=== PATIENT | female | born 1965 | race Caucasian/White ===

== ENCOUNTER 2017-08-11 09:59 | Emergency (ER) | payer BC ==
[2017-08-11] MEDS ORDERED: NS 0.9% 1000 ML* 1,000 ML IV ONE (10:48)
[2017-08-11] MEDS ORDERED: Ketorolac INJ* 30 MG/ML 1 ML VIAL IV ONE (10:48)
[2017-08-11] MEDS ORDERED: Ondansetron INJ* 2 MG/ML VIAL ONE (11:01)
[2017-08-11] MEDS ORDERED: Ondansetron INJ* 2 MG/ML VIAL IV ONE ×2 (11:01→12:33)
[2017-08-11 11:16] LABS: ABS Basophils 0 10^3/ul (0-0.2); ABS Eosinophils 0.1 10^3/ul (0-0.6); ABS Monocytes 0.5 10^3/ul (0-0.8); ABS Neutrophils 4.9 10^3/ul (1.5-7.7); ABS Nucleated RBC 0 10^3/ul; Eosinophil % 1.9 % (0-6); Hematocrit 41 % (35-47); Hemoglobin 13.4 g/dl (12.0-16.0); Lymphocyte % 15.4 % (25-47); Mean Corpuscular HGB Conc 33 g/dl (31-36); Mean Corpuscular Hemoglobin 26 pg (27-31); Mean Corpuscular Volume 79 fL (80-97); Mean Platelet Volume 9 um3 (7.4-10.4); Nucleated Red Blood Cells % 0.1; Platelet Count 220 10^3/ul (150-450); Red Blood Count 5.16 10^6/ul (4.0-5.4); Red Cell Distribution Width 15 % (10.5-15); White Blood Count 6.6 10^3/ul (3.5-10.8)
[2017-08-11 11:26] LABS: EGFR Non-African American 70.5 (>60)
--- NOTE | 2017-08-11 11:52 | RAD ---
Indication: Left flank pain. CT of the abdomen was performed without oral or IV contrast administration. Coronal and sagittal reconstructed images were obtained. The lung bases demonstrate no pleural fluid, nodules or masses. Heart is of normal size without evidence of pericardial effusion. The liver is enlarged. There is diffuse decrease in density of the liver consistent with hepatic steatosis. Areas of focal fatty sparing are noted adjacent to the gallbladder fossa. No definite intrahepatic duct dilatation is noted. The gallbladder demonstrates no calcified gallstones, pericholecystic fluid or wall thickening. The pancreas demonstrates no mass or pancreatic duct dilatation. The spleen is normal in size. No adrenal masses are noted. The kidneys demonstrate no hydronephrosis. No hydroureter is noted. No retroperitoneal adenopathy is noted. Atherosclerotic aorta is noted. No dilated loops of bowel are noted. There is diverticulosis without evidence of diverticulitis. Appendix is visualized and is normal. The uterus is unremarkable. There is a left adnexal cyst measuring up to 9.8 x 7.4 cm. Cystadenoma should BE considered. This was noted on prior endovaginal ultrasound. Follow-up exam is suggested. If the cystic structure remains direct visualization may be indicated. No free fluid is identified. Urinary bladder is partially collapsed. IMPRESSION: HEPATOMEGALY WITH HEPATIC STEATOSIS. AREAS OF FOCAL FATTY SPARING ARE NOTED. NO OBSTRUCTIVE UROPATHY IS NOTED. LEFT ADNEXAL CYST MEASURING UP TO 9.8 X 7.4 CM SIMILAR TO THAT SEEN ON PRIOR ULTRASOUND OF JULY 14, 2017. FURTHER FOLLOW-UP IS SUGGESTED. IF THIS DOES NOT RESOLVE THE POSSIBILITY OF CYSTADENOMA SHOULD BE CONSIDERED AND DIRECT VISUALIZATION MAY BE INDICATED. ALTERNATIVELY MRI OF THE PELVIS COULD BE PERFORMED ON A NONEMERGENT BASIS.
[2017-08-11] MEDS ORDERED: HYDROmorphone INJ* 1 MG/ML CARPUJECT SYRINGE IV ONE (12:33)
[2017-08-11 15:06] VITALS: BP 150/83
--- NOTE | 2017-08-11 21:18 | ED ---
Lillie Coppola Julia, scribed for Enoc Franks MD on 08/11/17 at 1034 . Abdominal Pain/Female - HPI Summary HPI Summary: This patient is a 52 year old F presenting to [facility] with a chief complaint of gradually worsening LLQ pain radiating to the L flank beginning this morning Patient reports vomiting and nausea. The patient rates the pain 7/10 in severity. Symptoms aggravated by sitting up. Patient reports an US performed three weeks ago revealed a left ovarian cyst. She states she had one day of symptoms that were lower and more medial then todays symptoms without radiation to the flank. Medications reviewed. - History of Current Complaint Chief Complaint: EDAbdPain Stated Complaint: FLANK PAIN Time Seen by Provider: 08/11/17 10:18 Hx Obtained From: Patient Onset/Duration: Sudden Onset, Lasting Hours, Still Present Timing: Constant Severity Initially: Mild Severity Currently: Moderate Pain Intensity: 7 Pain Scale Used: 0-10 Numeric Location: Discrete At: LLQ, Flank - left Radiates: Yes Radiates to: Flank - left Aggravating Factor(s): Other: - sitting up Associated Signs and Symptoms: Positive: Nausea, Vomiting Allergies/Adverse Reactions: Allergies Allergy/AdvReac Type Severity Reaction Status Date / Time amlodipine Allergy Edema Verified 08/11/17 11:14 hydromorphone [From Dilaudid] Allergy Anxiety Verified 08/11/17 13:03 latex Allergy Unknown Verified 08/11/17 11:14 Reaction Details lisinopril Allergy Coughing Verified 08/11/17 11:14 PMH/Surg Hx/FS Hx/Imm Hx Cardiovascular History: Reports: Hx Hypertension History: Reports: Other Problems/Disorders - ovarian cyst left - Cancer History Hx Chemotherapy: No Hx Radiation Therapy: No Infectious Disease History: No Infectious Disease History: Denies: Traveled Outside the [place] in Last 30 Days - Family History Known Family History: Positive: Other - hysterectomy - mother - Social History Alcohol Use: Occasionally Substance Use Type: Reports: None Smoking Status (MU): Never Smoked Tobacco Review of Systems Positive: Abdominal Pain, Vomiting, Nausea Positive: flank pain All Other Systems Reviewed And Are Negative: Yes Physical Exam - Summary Physical Exam Summary: Appearance: The patient is well-nourished in no acute distress and in no acute pain. Skin: The skin is warm and dry and skin color reflects adequate perfusion. HEENT: The head is normocephalic and atraumatic. The pupils are equal and reactive. The conjunctivae are clear and without drainage. Nares are patent and without drainage. Mouth reveals moist mucous membranes and the throat is without erythema and exudate. The external ears are intact. The ear canals are patent and without drainage. The tympanic membranes are intact. Neck: the neck is supple with full range of motion and non-tender. There are no carotid bruits. There is no neck vein distension. Respiratory: Chest is non-tender. Lungs are clear to auscultation and breath sounds are symmetrical and equal. Cardiovascular: Heart is regular rate and rhythm. There is no murmur or rub auscultated. There is no peripheral edema and pulses are symmetrical and equal. Abdomen: The abdomen is soft with LLQ tenderness with referred pain and no rebound. There are normal bowel sounds heard in all four quadrants and there is no organomegaly palpated. Musculoskeletal: There is no back tenderness noted. Extremities are non-tender with full range of motion. There is good capillary refill. There is no peripheral edema or calf tenderness elicited. Neurological: Patient is alert and oriented to person, place and time. The patient has symmetrical motor strength in all four extremities. Cranial nerves are grossly intact. Deep tendon reflexes are symmetrical and equal in all four extremities. Psychiatric: The patient has an appropriate affect and does not exhibit any anxiety or depression. Triage Information Reviewed: Yes Vital Signs On Initial Exam: Initial Vitals Temp Pulse Resp BP Pulse Ox 97.5 F 75 24 185/116 100 08/11/17 10:03 08/11/17 10:03 08/11/17 10:03 08/11/17 10:03 08/11/17 10:03 Vital Signs Reviewed: Yes Diagnostics - Vital Signs Vital Signs Temp Pulse Resp BP Pulse Ox 08/11/17 10:13 76 178/87 100 08/11/17 10:03 97.5 F 75 24 185/116 100 - Laboratory Lab Results: Lab Results 08/11/17 08/11/17 08/11/17 Range/Units 11:00 11:00 11:00 WBC 6.6 (3.5-10.8) 10^3/ul RBC 5.16 (4.0-5.4) 10^6/ul Hgb 13.4 (12.0-16.0) g/dl Hct 41 (35-47) % MCV 79 L (80-97) fL MCH 26 L (27-31) pg MCHC 33 (31-36) g/dl RDW 15 (10.5-15) % Plt Count 220 (150-450) 10^3/ul MPV 9 (7.4-10.4) um3 Neut % (Auto) 74.7 (38-83) % Lymph % (Auto) 15.4 L (25-47) % [place] % (Auto) 7.3 H (0-7) % Eos % (Auto) 1.9 (0-6) % Baso % (Auto) 0.7 (0-2) % Absolute Neuts (auto) 4.9 (1.5-7.7) 10^3/ul Absolute Lymphs (auto) 1.0 (1.0-4.8) 10^3/ul Absolute Monos (auto) 0.5 (0-0.8) 10^3/ul Absolute Eos (auto) 0.1 (0-0.6) 10^3/ul Absolute Basos (auto) 0 (0-0.2) 10^3/ul Absolute Nucleated RBC 0 10^3/ul Nucleated RBC % 0.1 Sodium 136 (133-145) mmol/L Potassium 3.6 (3.5-5.0) mmol/L Chloride 101 (101-111) mmol/L Carbon Dioxide 23 (22-32) mmol/L Anion Gap 12 H (2-11) mmol/L BUN 17 (6-24) mg/dL Creatinine 0.85 (0.51-0.95) mg/dL Est GFR ( Amer) 90.7 (>60) Est GFR (Non-Af Amer) 70.5 (>60) BUN/Creatinine Ratio 20.0 (8-20) Glucose 131 H (70-100) mg/dL Lactic Acid 2.0 (0.5-2.0) mmol/L Calcium 9.6 (8.6-10.3) mg/dL Total Bilirubin 0.40 (0.2-1.0) mg/dL AST 23 (13-39) U/L ALT 34 (7-52) U/L Alkaline Phosphatase 66 (34-104) U/L C-Reactive Protein 15.74 H (< 5.00) mg/L Total Protein 7.4 (6.4-8.9) g/dL Albumin 4.3 (3.2-5.2) g/dL Globulin 3.1 (2-4) g/dL Albumin/Globulin Ratio 1.4 (1-3) Lipase 16 (11.0-82.0) U/L CA 125 Antigen (0-35) U/mL 08/11/17 Range/Units 11:00 WBC (3.5-10.8) 10^3/ul RBC (4.0-5.4) 10^6/ul Hgb (12.0-16.0) g/dl Hct (35-47) % MCV (80-97) fL MCH (27-31) pg MCHC (31-36) g/dl RDW (10.5-15) % Plt Count (150-450) 10^3/ul MPV (7.4-10.4) um3 Neut % (Auto) (38-83) % Lymph % (Auto) (25-47) % [place] % (Auto) (0-7) % Eos % (Auto) (0-6) % Baso % (Auto) (0-2) % Absolute Neuts (auto) (1.5-7.7) 10^3/ul Absolute Lymphs (auto) (1.0-4.8) 10^3/ul Absolute Monos (auto) (0-0.8) 10^3/ul Absolute Eos (auto) (0-0.6) 10^3/ul Absolute Basos (auto) (0-0.2) 10^3/ul Absolute Nucleated RBC 10^3/ul Nucleated RBC % Sodium (133-145) mmol/L Potassium (3.5-5.0) mmol/L Chloride (101-111) mmol/L Carbon Dioxide (22-32) mmol/L Anion Gap (2-11) mmol/L BUN (6-24) mg/dL Creatinine (0.51-0.95) mg/dL Est GFR ( Amer) (>60) Est GFR (Non-Af Amer) (>60) BUN/Creatinine Ratio (8-20) Glucose (70-100) mg/dL Lactic Acid (0.5-2.0) mmol/L Calcium (8.6-10.3) mg/dL Total Bilirubin (0.2-1.0) mg/dL AST (13-39) U/L ALT (7-52) U/L Alkaline Phosphatase (34-104) U/L C-Reactive Protein (< 5.00) mg/L Total Protein (6.4-8.9) g/dL Albumin (3.2-5.2) g/dL Globulin (2-4) g/dL Albumin/Globulin Ratio (1-3) Lipase (11.0-82.0) U/L CA 125 Antigen 6.4 (0-35) U/mL Result Diagrams: 08/11/17 11:00 08/11/17 11:00 Lab Statement: Any lab studies that have been ordered have been reviewed, and results considered in the medical decision making process. - CT A/P CT Interpretation Completed By: Radiologist - HEPATOMEGALY WITH HEPATIC STEATOSIS. AREAS OF FOCAL FATTY SPARING ARE NOTED. NO OBSTRUCTIVE UROPATHY IS NOTED. LEFT ADNEXAL CYST MEASURING UP TO 9.8 X 7.4 CM SIMILAR TO THAT SEEN ON PRIOR ULTRASOUND OF JULY 14, 2017. FURTHER FOLLOW-UP IS SUGGESTED. IF THIS DOES NOT RESOLVE THE POSSIBILITY OF CYSTADENOMA SHOULD BE CONSIDERED AND DIRECT VISUALIZATION MAY BE INDICATED. ALTERNATIVELY MRI OF THE PELVIS COULD BE PERFORMED ON A NONEMERGENT BASIS. ED Physician has reviewed this report. Abdominal Pain Fem Course/Dx - Course Course Of Treatment: Ms. Quispe presented with LLQ/flank pain that has been there for a few days but has worsened. She had an U/S which showed a cyst a couple days ago. CT here revealed no other pathology to explain the pain and Dr. Young was contacted for F/U. She arranged to have the patient seen by Dr. Edmonds in the AM. - Diagnoses Provider Diagnoses: Ovarian cyst - Provider Notifications Discussed Care Of Patient With: Wiley Edmonds - gynecology Time Discussed With Above Provider: 12:25 Instructed by Provider To: Other - will make an appointmet with patient for tomorrow Discharge - Discharge Plan Condition: Stable Disposition: HOME Prescriptions: HYDROcodone/ACETAMIN 5-325 MG* [Brandon 5-325 TAB*] 1 tab PO Q6H PRN #20 tab MDD 4 PRN Reason: Pain Ondansetron ODT TAB* [Zofran Odt TAB*] 4 mg PO Q6H PRN #20 tab.odt PRN Reason: Nausea/Vomiting Patient Education Materials: Ovarian Cyst (ED) Referrals: Wiley Edmonds MD [Medical Doctor] - 1 Day (Follow up with Dr. Edmonds tomorrow morning) The documentation as recorded by the Lillie cornelius Julia accurately reflects the service I personally performed and the decisions made by me, Enoc Franks MD.
== END 2017-08-11 14:04 | disposition home or self-care (01) ==
LOC: ED 09:59
DX: N83.202 Unspecified ovarian cyst, left side (principal); K76.0 Fatty (change of) liver, not elsewhere classified; I10 Essential (primary) hypertension
CPT/HCPCS: 36415; 74176; 80053; 83605; 83690; 85025; 86140; 86304; 96374; 96375; 96376; 99283; J1170; J1885; J2405

== ENCOUNTER 2017-09-01 11:33 | Day surgery (SDC) | payer BC ==
[~2017-09-01 11:33] MED LIST: Buffered Lidocaine 0.9% SYRIN* 5 ML/SYR SYRINGE INTRADERM ONE; Dexamethasone IV* 4 MG/ML 1 ML (4 MG) IV SLOW PU ONE; Famotidine IV* 10 MG/ML 2 ML (20 mg) IV ONE; Midazolam* 1 MG/ML 2 ML VIAL (2 MG) ONE; fentaNYL* 50 MCG/ML 2 ML VIAL (100 MCG VIAL) ONE
[2017-09-01] MEDS ORDERED: Dexamethasone IV* 4 MG/ML 1 ML (4 MG) ONE (11:38)
[2017-09-01] MEDS ORDERED: Famotidine IV* 10 MG/ML 2 ML (20 mg) ONE (11:38)
[2017-09-01] MEDS ORDERED: Bupivacaine 0.5%* 50 ML VIAL ONE (12:08)
[2017-09-01] MEDS ORDERED: Succinylcholine* 20 MG/ML 10 ML VIAL ONE (12:18)
[2017-09-01] MEDS ORDERED: Lidocaine 1% INJ* 10 MG/ML 30 ML SDV ONE (12:18)
[2017-09-01] MEDS ORDERED: Rocuronium* 10 MG/ML VIAL ONE (12:44)
[2017-09-01] MEDS ORDERED: Naloxone* 0.4 MG/ML 1 ML VIAL IV PRN (13:15)
[2017-09-01] MEDS ORDERED: fentaNYL* 50 MCG/ML 2 ML VIAL (100 MCG VIAL) IV PRN (13:15)
[2017-09-01] MEDS ORDERED: DiMENhydriNATE IV* 50 MG/ML VIAL IV PUSH PRN (13:15)
[2017-09-01] MEDS ORDERED: Propofol* 10 MG/ML 20 ML BTL IV PUSH ONE (13:28)
[2017-09-01] MEDS ORDERED: Glycopyrrolate IV* 0.2 MG/ML 1 ML VIAL ONE (13:28)
[2017-09-01] MEDS ORDERED: Ondansetron INJ* 2 MG/ML VIAL ONE (13:28)
[2017-09-01] MEDS ORDERED: Neostigmine Methylsulfate* 1 MG/ML 10 ML VIAL (1 mg/ml) ONE (13:28)
[2017-09-01] MEDS ORDERED: Ketorolac INJ* 30 MG/ML 1 ML VIAL ONE (13:28)
[2017-09-01 14:48] VITALS: BP 142/91
--- NOTE | 2017-09-02 03:13 | OP ---
DATE OF OPERATION: 09/01/17 - [facility] DATE OF : 67 SURGEON: Wiley Edmonds MD HAND LACER: Dr. Mcwilliams. ANESTHESIA: General endotracheal tube. PRE-OP DIAGNOSIS: Large left ovarian cyst. POST-OP DIAGNOSIS: Left ovarian torsion. OPERATIVE PROCEDURE: Laparoscopy and left salpingo-oophorectomy. COMPLICATIONS: None. FINDINGS: On exam under anesthesia, on laparoscopy, the anterior bladder flap appeared normal. The cul-de-sac was hard to visualize. The left ovary and fallopian tube were enlarged over a large cyst. There was a single twist in the infundibulopelvic ligament suggesting ovarian torsion. The right fallopian tube had a hydatid cyst of Morgagni about approximately 1 cm and normal appearing ovary. The liver surface was smooth. DESCRIPTION OF PROCEDURE: The patient identified, procedure identified as a laparoscopy and left salpingo-oophorectomy. The patient was taken to the operating room, prepped and draped in the usual fashion in the dorsal lithotomy position under general anesthesia. A sponge stick was placed in the vagina for manipulation. A small infra-umbilical incision was made and a Veress needle inserted through this. The abdomen was insufflated to 50 mmHg. The Veress needle was removed and the trocar was inserted. Trocar was removed from the sheath and the laparoscope was inserted and the above findings were noted. A second and third trocars were inserted on the abdominal sidewalls approximately 8 cm lateral to the umbilicus under direct visualization. These were 5 mm trocars. Using the LigaSure, the infundibulopelvic ligament was grasped and ligated using the LigaSure until the whole ovary and cyst had been excised. Good hemostasis was verified. An EndoCatch bag was placed through the umbilical 10/12 mm trocar and opened. The intact ovary and cyst was placed within the bag and brought out into the umbilical incision. Trocars were removed. Inside the bag, the ovary was pierced and suction was used to pull out clear fluid until the whole ovary was able to be delivered through the small 10/12 mm trocar site. The trocar was placed back in the cavity after removal of the bag and good hemostasis was verified. All the inspection took place. All instruments were removed from the abdomen. The abdomen was deflated of CO2. The umbilical incision was closed on the fascia using 2-0 Polysorb. The skin was closed using 3-0 Vicryl in a subcuticular fashion along with some skin glue to bring the skin close together. The sponge and sponge stick were removed from the vagina and the patient returned to the recovery room in stable condition. All sponge and instrument counts were correct. [id number]/[facility] #: [id number] MTDD
== END 2017-09-01 15:07 | disposition home or self-care (01) ==
LOC: OR 11:33
PROVIDERS: ATTEND Obstetrics & Gynecology
DX: D27.1 Benign neoplasm of left ovary (principal); N83.512 Torsion of left ovary and ovarian pedicle; Z68.39 Body mass index [BMI] 39.0-39.9, adult; I10 Essential (primary) hypertension; K21.9 Gastro-esophageal reflux disease without esophagitis
CPT/HCPCS: 81025; 88305; J0330; J1100; J1885; J2250; J2405; J2704; J2710; J3010

== ENCOUNTER 2018-03-22 23:35 | Emergency (ER) | payer BC ==
[2018-03-23] MEDS ORDERED: Cephalexin CAP* 500 MG PO ONE (00:53)
--- NOTE | 2018-03-23 00:55 | ED ---
Skin Complaint - HPI Summary HPI Summary: Patient complains of redness, swelling and tenderness to right side face starting this a.m. Denies history of same. States history of cold symptoms that recently resolved. Denies trauma, purulent discharge, nasal congestion, fever, cough, sore throat, ear pain, WAGONER, neck stiffness, CP, SOB, N/V/D, abdominal pain, change in urine, change in BM. Medical history is HTN. - History of Current Complaint Chief Complaint: EDGeneral Time Seen by Provider: 03/22/18 23:56 Stated Complaint: FACIAL SWELLING Hx Obtained From: Patient Onset/Duration: Started Hours Ago Skin Exposure Onset/Duration: Hours Ago Timing: Constant Current Severity: None Pain Intensity: 0 Pain Scale Used: 0-10 Numeric Aggravating Symptom(s): Touch Alleviating Symptom(s): Nothing Associated Signs & Symptoms: Negative - Allergy/Home Medications Allergies/Adverse Reactions: Allergies Allergy/AdvReac Type Severity Reaction Status Date / Time amlodipine Allergy Edema Verified 03/22/18 23:47 hydromorphone [From Dilaudid] Allergy Anxiety Verified 03/22/18 23:47 latex Allergy bumpy skin Verified 03/22/18 23:47 and itching lisinopril Allergy Coughing Verified 03/22/18 23:47 PMH/Surg Hx/FS Hx/Imm Hx Endocrine/Hematology History: Denies: Hx Anticoagulant Therapy Cardiovascular History: Reports: Hx Hypertension - ON MEDICATION FOR Denies: Hx Cardiac Arrest, Hx Pacemaker/ICD GI History: Reports: Hx Gastroesophageal Reflux Disease - HX OF IN THE PAST History: Reports: Other Problems/Disorders - ovarian cyst left Musculoskeletal History: Reports: Hx Tendonitis - BILATERAL SHOULDERS Sensory History: Reports: Hx Contacts or Glasses - READING GLASSES Denies: Hx Hearing Aid Opthamlomology History: Reports: Hx Contacts or Glasses - READING GLASSES - Cancer History Hx Chemotherapy: No Hx Radiation Therapy: No - Surgical History Surgery Procedure, Year, and Place: WISDOM TEETH EXTRACTED-AGE 15 Hx Anesthesia Reactions: No Infectious Disease History: No Infectious Disease History: Denies: Traveled Outside the [place] in Last 30 Days - Family History Known Family History: Positive: Other - hysterectomy - mother - Social History Alcohol Use: Occasionally Substance Use Type: Reports: None Smoking Status (MU): Never Smoked Tobacco Review of Systems Constitutional: Negative Eyes: Negative ENT: Negative Cardiovascular: Negative Respiratory: Negative Gastrointestinal: Negative Genitourinary: Negative Musculoskeletal: Negative Skin: Other Neurological: Negative Psychological: Normal All Other Systems Reviewed And Are Negative: Yes Physical Exam - Summary Physical Exam Summary: Mild swelling, erythema, tenderness to area face lateral to right side nose. No apical fluctuance. No purulent discharge. Triage Information Reviewed: Yes Vital Signs On Initial Exam: Initial Vitals Temp Pulse Resp BP Pulse Ox 98.5 F 70 20 166/102 97 03/22/18 23:42 03/22/18 23:42 03/22/18 23:42 03/22/18 23:42 03/22/18 23:42 Vital Signs Reviewed: Yes Appearance: Positive: Well-Appearing Skin: Positive: Warm Head/Face: Positive: Normal Head/Face Inspection Eyes: Positive: Normal ENT: Positive: Normal ENT inspection Neck: Positive: Supple Respiratory/Lung Sounds: Positive: Clear to Auscultation Cardiovascular: Positive: Normal Abdomen Description: Positive: Nontender Musculoskeletal: Positive: Normal Neurological: Positive: Normal Psychiatric: Positive: Normal AVPU Assessment: Alert - [place] Coma Scale Best Eye Response: 4 - Spontaneous Best Motor Response: 6 - Obeys Commands Best Verbal Response: 5 - Oriented Coma Scale Total: 15 Procedures - Incision and Drainage 1 Site: right side face Anesthesia: Local Instrument(s): Scalpel Diagnostics - Vital Signs Vital Signs Temp Pulse Resp BP Pulse Ox 03/22/18 23:42 98.5 F 70 20 166/102 97 - Laboratory Lab Statement: Any lab studies that have been ordered have been reviewed, and results considered in the medical decision making process. Course/Dx - Course Course Of Treatment: Patient complains of redness, swelling and tenderness to right side face starting this a.m. Denies history of same. States history of cold symptoms that recently resolved. Denies trauma, purulent discharge, nasal congestion, fever, cough, sore throat, ear pain, WAGONER, neck stiffness, CP, SOB, N/ V/D, abdominal pain, change in urine, change in BM. Medical history is HTN. Physical exam:Mild swelling, erythema, tenderness to area face lateral to right side nose. No apical fluctuance. No purulent discharge. Vital signs within normal limits. I and D performed without purulent drainage. Rx for Keflex. - Diagnoses Provider Diagnoses: Abscess Discharge - Sign-Out/Discharge Documenting (check all that apply): Patient Departure - Discharge Plan Condition: Stable Disposition: HOME Prescriptions: Cephalexin CAP* [Keflex CAP*] 500 mg PO TID 10 Days #30 cap Patient Education Materials: Abscess (ED), Abscess Follow-up (ED) Referrals: Mallory Biswas AUDIOVISUAL LEAD TECHNICIAN [Primary Care Provider] - Additional Instructions: Use warm compresses or warm shower water to help drain abscess. Keep surgical wound open. Take antibiotics as directed. Wash with warm running water and soap. Return to the ED for any new or worsening symptoms - Billing Disposition and Condition Condition: STABLE Disposition: Home
[2018-03-23] MEDS ORDERED: Cephalexin CAP* 500 MG ONE (00:57)
[2018-03-23 01:05] VITALS: BP 123/68
== END 2018-03-23 01:04 | disposition home or self-care (01) ==
LOC: ED 23:35
DX: L02.01 Cutaneous abscess of face (principal); R60.0 Localized edema; I10 Essential (primary) hypertension
CPT/HCPCS: 10060; 99282; A9270-GY

== ENCOUNTER 2018-12-05 07:56 | Inpatient (IN) | payer BC ==
--- OUTSIDE RECORDS SUMMARY | 2018-12-05 08:23 | XMS REPORT | Continuity of Care Document ---
:1965 External Reference #:[id number] Author Name Neftali Hay MD Address [address] [place] [address] Care Team Providers Name Role Phone JAMES Cota Care Team Information Rehab Nurse Unavailable Payers Date Identification Numbers Payment Provider Subscriber Policy Number: [id number] [facility] Quispe Group Name: Milton Levi [address] [address] PayID: [id number] ELISE Morales [address] Problems Active Problems Provider Date Essential hypertension JAMES Cota Onset: 12/24/2010 Hyperlipidemia Stephy Romero M.D. Onset: 12/24/2010 Obesity Stephy Romero M.D. Onset: 12/24/2010 Family History Date Family Member(s) Observation Comments General Cancer, Breast in father's family, unclear what age. Father 66 age 69 with CVA Father Diabetes Father Right BKA Secondary To Infection Mother 66 age 71 Mother Diabetes Mother Hypertension Mother CAD Mother Cad- Was Told Had "Silent [place]". Has Not Had Card Cath Mother CVA Mother hypoglycemia age 74, heavy smoker First Brother 33 alive age 38 First Brother Murmur First Sister 42 alive age 48 First Sister Pulmonary Embolism SMOKES First Sister Hypertension First Sister Diabetes Second Sister 38 alive age 42 Second Sister Gestational DM Second Sister Hypertension Second Sister Obesity Second Sister Diabetes RESOLVED WITH GASTRIC SLEEVE Paternal Grandfather due to CAD () Paternal Grandfather due to Age Mid () 60'S, Suspected [place] Paternal Grandmother due to Unknown () Causes Age 30'S Maternal Grandfather due to Age () 80'S ? [place] Maternal Grandfather due to GI cancer () Maternal Grandmother due to Age () 60'S, ? [place] Social History Type Date Description Comments Sex Unknown Marital Status Lives With Spouse Lives With Daughters age 17 and 19 Diet No restrictions Pt eats what she wants, when she wants. Eats a lot of fruits and vegetables, occasional red meat. Eats prepared foods weekly. Drinks (2) sodas daily. No coffee. Occupation [employer] at the [employer] Tobacco Use Start: Unknown Never Smoked Cigarettes ETOH Use Occasionally consumes alcohol Tobacco Use Start: Unknown Patient has never smoked Recreational Drug Use Denies Drug Use Exercise Type/Frequency Exercises sporadically Allergies, Adverse Reactions, Alerts Active Allergies Reaction Severity Comments Date Latex 11/17/2010 Lisinopril cough 11/12/2011 Amlodipine edema 11/12/2011 Dilaudid Panic Attack Mild 08/19/2017 Medications Active Medications SIG Qnty Indications Ordering Date Provider Losartan Potassium 1 by mouth every 90tabs I10 Mallory RTaty 08/02/2018 50mg day True, LITERACY COACH-C Tablets [facility]iv[facility] 12[facility]2013 Capsules day True, LITERACY COACH-C Aspirin daily Kristianmarcelino RTaty 11/21/2012 81mg Tablets True LITERACY COACH-C Triamterene/Hydrochlor Take 1 Capsule By 90caps I10 Mallory RTaty 11/12/2011 othiazide Mouth One Time True LITERACY COACH-C 37.5-25mg Daily For Blood Capsules Pressure Tylenol 8 Hour Unknown 650mg Tablets ER History Medications Neomycin/Polymyxin/Hydrocortisone instill 3 10units Mallory RTaty 2018 - (Otic) drops in [facility], 12/04/2018 [id number] Solution each ear LITERACY COACH-C twice daily if needed for itching Losartan Potassium Take 1 90tabs I10 Mallory RTaty 01/03/2017 - 25mg Tablets Tablet By [facility], 08/02/2018 Mouth Every LITERACY COACH-C Day Amlodipine Besylate 1 po qd 30tabs 401. Kristianwnti R. 10/12/2011 - 10mg Tablets 9 [facility], 11/12/2011 LITERACY COACH-C Losartan 1 po daily 90tabs 401. Kristianwnti R. 09/14/2011 - Potassium/Hydrochlorothiazide for blood 9 [facility], 11/12/2011 100-25mg Tablets pressure LITERACY COACH-C Amlodipine Besylate 1 po daily 30tabs 401. Kristianwnti R. 09/14/2011 - 5mg Tablets for blood 9 [facility], 10/12/2011 pressure LITERACY COACH-C Losartan 1 po daily 30tabs 401. Kristianwnti R. 08/24/2011 - Potassium/Hydrochlorothiazide for blood 9 [facility], 09/14/2011 100-25mg Tablets pressure LITERACY COACH-C Losartan 1 po daily 30tabs 401. Kristianwnti R. 08/03/2011 - Potassium/Hydrochlorothiazide for blood 9 [facility], 08/24/2011 50-12.5mg Tablets pressure LITERACY COACH-C Lisinopril/Hydrochlorothiazide 1 po qd for 90tabs 401. Kristianwnti R. 2010 - 20-12.5mg Tablets blood 9 [facility], 08/03/2011 pressure LITERACY COACH-C Lisinopril/Hydrochlorothiazide 1 po daily 90tabs 401. Kristianwnti R. 2010 - 10-12.5mg Tablets for blood 9 [facility], 12/24/2010 pressure LITERACY COACH-C Prednisone 10mg 60 MG Day 21tabs Tamika 04/06/2006 - Tablets 1(6 Tabs), VARGHESE Coombs 04/17/2008 Then Decrease By One Tab Daily For 5 More Days (60-50-40-30 -20-10) Immunizations CPT Code Status Date Vaccine Lot # [id number] Given 11/21/2012 Tdap (Adacel) [id number] Given 04/06/2006 Tetanus [id number] Refused 02/04/2017 Influenza Virus Vaccine, Quadrivalent, 3 Yr > Quad , Preserv Free Vital Signs Date Vital Result Comment 12/04/2018 2:20pm Weight 259.00 lb Weight 117.482 kg BP Systolic 140 mmHg BP Diastolic 78 mmHg Heart Rate 84 /min Body Temperature 100.7 F Respiratory Rate 18 /min O2 % BldC Oximetry 96 % 09/08/2018 9:21am Weight 260.00 lb Weight 117.936 kg BP Systolic 128 mmHg BP Diastolic 74 mmHg Heart Rate 76 /min Body Temperature 98.6 F Respiratory Rate 16 /min 08/02/2018 8:48am Weight 257.00 lb Weight 116.575 kg BP Systolic 144 mmHg BP Diastolic 80 mmHg Heart Rate 79 /min Body Temperature 98.0 F Respiratory Rate 16 /min O2 % BldC Oximetry 94 % 08/19/2017 8:51am Weight 250.00 lb Weight 113.400 kg BP Systolic 110 mmHg BP Diastolic 68 mmHg Heart Rate 62 /min Body Temperature 98.3 F O2 % BldC Oximetry 99 % 06/10/2017 1:24pm Weight 252.00 lb Weight 114.307 kg BP Systolic 132 mmHg BP Diastolic 78 mmHg Heart Rate 62 /min Body Temperature 97.7 F Respiratory Rate 16 /min Height 67 inches 5'7" BMI (Body Mass Index) 39.5 kg/m2 O2 % BldC Oximetry 98 % 02/04/2017 3:40pm Weight 254.00 lb Weight 115.214 kg BP Systolic 130 mmHg BP Diastolic 82 mmHg Heart Rate 60 /min Body Temperature 98.5 F Respiratory Rate 14 /min 01/03/2017 10:24am Weight 251.00 lb Weight 113.854 kg BP Systolic 140 mmHg BP Diastolic 90 mmHg Heart Rate 64 /min Body Temperature 98.1 F Respiratory Rate 14 /min 03/15/2016 3:03pm Weight 250.00 lb Weight 113.400 kg BP Systolic 138 mmHg BP Diastolic 70 mmHg Heart Rate 84 /min Height 67 inches 5'7" BMI (Body Mass Index) 39.2 kg/m2 Last Menstrual Period [id number] 01/28/2015 1:22pm Weight 251.00 lb Weight 113.854 kg BP Systolic 139 mmHg BP Diastolic 68 mmHg Heart Rate 64 /min Height 67 inches 5'7" BMI (Body Mass Index) 39.3 kg/m2 Last Menstrual Period [id number] 12/31/2013 8:42am Weight 250.00 lb Weight 113.400 kg BP Systolic 118 mmHg BP Diastolic 66 mmHg Heart Rate 68 /min Height 68 inches 5'8" BMI (Body Mass Index) 38.0 kg/m2 Last Menstrual Period [id number] 05/18/2013 9:58am Weight 248.00 lb Weight 112.493 kg BP Systolic 134 mmHg BP Diastolic 76 mmHg Heart Rate 72 /min 11/21/2012 8:55am Weight 247.00 lb Weight 112.039 kg BP Systolic 130 mmHg BP Diastolic 82 mmHg Heart Rate 72 /min Height 68 inches 5'8" BMI (Body Mass Index) 37.6 kg/m2 Last Menstrual Period [id number] 05/19/2012 4:36pm Weight 240.00 lb Weight 108.864 kg BP Systolic 122 mmHg BP Diastolic 74 mmHg Heart Rate 68 /min 11/26/2011 4:33pm Weight 244.00 lb Weight 110.678 kg BP Systolic 120 mmHg BP Diastolic 72 mmHg Heart Rate 68 /min 11/12/2011 4:54pm Weight 250.00 lb Weight 113.400 kg BP Systolic 114 mmHg BP Diastolic 60 mmHg Heart Rate 80 /min 10/12/2011 4:34pm Weight 244.00 lb Weight 110.678 kg BP Systolic 130 mmHg BP Diastolic 70 mmHg Heart Rate 80 /min 09/14/2011 4:33pm Weight 246.00 lb Weight 111.586 kg BP Systolic 176 mmHg BP Diastolic 90 mmHg Heart Rate 76 /min 08/24/2011 4:21pm Weight 246.00 lb Weight 111.586 kg BP Systolic 140 mmHg BP Diastolic 100 mmHg Heart Rate 80 /min 08/03/2011 5:08pm Weight 240.00 lb Weight 108.864 kg BP Systolic 140 mmHg BP Diastolic 84 mmHg Heart Rate 82 /min Respiratory Rate 18 /min 12/24/2010 8:38am Weight 240.00 lb Weight 108.864 kg BP Systolic 140 mmHg BP Diastolic 88 mmHg Heart Rate 68 /min 11/17/2010 7:53am Weight 239.00 lb Weight 108.410 kg BP Systolic 162 mmHg BP Diastolic 94 mmHg Heart Rate 64 /min Height 68 inches 5'8" BMI (Body Mass Index) 36.3 kg/m2 Last Menstrual Period [id number] 04/03/2008 10:00am Weight 244.00 lb Weight 110.678 kg BP Systolic 140 mmHg BP Diastolic 82 mmHg Heart Rate 64 /min Height 67.75 inches 5'7.75" BMI (Body Mass Index) 37.4 kg/m2 04/06/2006 8:59am Weight 230.00 lb Weight 104.328 kg BP Systolic 134 mmHg BP Diastolic 72 mmHg Heart Rate 72 /min Height 68 inches 5'8" BMI (Body Mass Index) 35.0 kg/m2 Last Menstrual Period [id number] Results Test Date Facility Test Result H/L Range Note Laboratory test 12/04/2018 [facility] Lyme Screen < pending> finding [phone] W/ Reflex To WB CBC Auto Diff 12/04/2018 [facility] White Blood 4.2 10^3/uL N 3.5-10.8 [phone] Count Red Blood Count 5.08 10^6/uL High 3.70-4.87 Hemoglobin 13.6 g/dL N 12.0-16.0 Hematocrit 41 % N 35-47 Mean Corpuscular Volume 80 fL N 80-97 Mean Corpuscular Hemoglobin 27 pg N 27-31 Mean Corpuscular HGB Conc 34 g/dL N 31-36 Red Cell Distribution Width 15 % N 10-15 Platelet Count 200 10^3/uL N 150-450 Mean Platelet Volume 8.7 fL N 7.4-10.4 Abs Neutrophils 3.2 10^3/uL N 1.5-7.7 Abs Lymphocytes 0.7 10^3/uL Low 1.0-4.8 Abs Monocytes 0.3 10^3/uL N 0-0.8 Abs Eosinophils 0.0 10^3/uL N 0-0.6 Abs Basophils 0.0 10^3/uL N 0-0.2 Abs Nucleated RBC 0.0 10^3/uL Granulocyte % 74.5 % Lymphocyte % 16.5 % Monocyte % 8.2 % Eosinophil % 0.3 % Basophil % 0.5 % Nucleated Red Blood Cells % 0.1 Comp Metabolic Panel 12/04/2018 [facility] Sodium 138 mmol/L N 135-145 [phone] Potassium 3.9 mmol/L N 3.5-5.0 Chloride 101 mmol/L N 101-111 Co2 Carbon Dioxide 28 mmol/L N 22-32 Anion Gap 9 mmol/L N 2-11 Glucose 126 mg/dL High 70-100 Blood Urea Nitrogen 12 mg/dL N 6-24 Creatinine 0.83 mg/dL N 0.51-0.95 BUN/Creatinine Ratio 14.5 N 8-20 Calcium 9.3 mg/dL N 8.6-10.3 Total Protein 7.3 g/dL N 6.4-8.9 Albumin 4.4 g/dL N 3.2-5.2 Globulin 2.9 g/dL N 2-4 Albumin/Globulin Ratio 1.5 N 1-3 Total Bilirubin 0.50 mg/dL N 0.2-1.0 Alkaline Phosphatase 68 U/L N 34-104 Alt 51 U/L N 7-52 Ast 33 U/L N 13-39 Egfr Non- 72.2 >60 Egfr 87.4 >60 1 Laboratory test 12/04/2018 [facility] C Reactive 68.83 High <8.01 2 finding [phone] Protein mg/L Laboratory test 08/02/2018 [facility] Hemoglobin A1c 6.2 % High 4.0-5.6 3 finding [phone] (Glyco HGB) Laboratory test 08/02/2018 [facility] TSH (Thyroid 2.31 N 0.34-5.60 4 finding [phone] Stim Horm) mcIU/mL CBC Auto Diff 08/02/2018 [facility] White Blood 6.5 N 3.5-10.8 [phone] Count 10^3/uL Red Blood Count 5.18 10^6/uL N 4.00-5.40 Hemoglobin 13.8 g/dL N 12.0-16.0 Hematocrit 42 % N 35-47 Mean Corpuscular Volume 81 fL N 80-97 Mean Corpuscular Hemoglobin 27 pg N 27-31 Mean Corpuscular HGB Conc 33 g/dL N 31-36 Red Cell Distribution Width 15 % N 10.5-15 Platelet Count 261 10^3/uL N 150-450 Mean Platelet Volume 9.3 fL N 7.4-10.4 Abs Neutrophils 4.4 10^3/uL N 1.5-7.7 Abs Lymphocytes 1.5 10^3/uL N 1.0-4.8 Abs Monocytes 0.4 10^3/uL N 0-0.8 Abs Eosinophils 0.1 10^3/uL N 0-0.6 Abs Basophils 0 10^3/uL N 0-0.2 Abs Nucleated RBC 0 10^3/uL Granulocyte % 67.0 % Lymphocyte % 23.7 % Monocyte % 6.4 % Eosinophil % 2.2 % Basophil % 0.7 % Nucleated Red Blood Cells % 0 Lipid Profile 08/02/2018 [facility] Triglycerides 225 mg/dL 5 (Trig/Chol/HDL) [phone] Cholesterol 246 mg/dL 6 HDL Cholesterol 50.6 mg/dL 7 LDL Cholesterol 150 mg/dL 8 Comp Metabolic Panel 08/02/2018 [facility] Sodium 139 mmol/L N 135-145 [phone] Potassium 4.2 mmol/L N 3.5-5.0 Chloride 101 mmol/L N 101-111 Co2 Carbon Dioxide 31 mmol/L N 22-32 Anion Gap 7 mmol/L N 2-11 Glucose 92 mg/dL N 70-100 Blood Urea Nitrogen 14 mg/dL N 6-24 Creatinine 0.79 mg/dL N 0.51-0.95 BUN/Creatinine Ratio 17.7 N 8-20 Calcium 9.6 mg/dL N 8.6-10.3 Total Protein 7.5 g/dL N 6.4-8.9 Albumin 4.6 g/dL N 3.2-5.2 Globulin 2.9 g/dL N 2-4 Albumin/Globulin Ratio 1.6 N 1-3 Total Bilirubin 0.50 mg/dL N 0.2-1.0 Alkaline Phosphatase 73 U/L N 34-104 Alt 49 U/L N 7-52 Ast 31 U/L N 13-39 Egfr Non- 76.4 >60 Egfr 92.5 >60 9 CBC Auto Diff 08/11/2017 [facility] White Blood 6.6 10^3/uL N 3.5-10.8 [phone] Count Red Blood Count 5.16 10^6/uL N 4.0-5.4 Hemoglobin 13.4 g/dL N 12.0-16.0 Hematocrit 41 % N 35-47 Mean Corpuscular Volume 79 fL Low 80-97 Mean Corpuscular Hemoglobin 26 pg Low 27-31 Mean Corpuscular HGB Conc 33 g/dL N 31-36 Red Cell Distribution Width 15 % N 10.5-15 Platelet Count 220 10^3/uL N 150-450 Mean Platelet Volume 9 um3 N 7.4-10.4 Abs Neutrophils 4.9 10^3/uL N 1.5-7.7 Abs Lymphocytes 1.0 10^3/uL N 1.0-4.8 Abs Monocytes 0.5 10^3/uL N 0-0.8 Abs Eosinophils 0.1 10^3/uL N 0-0.6 Abs Basophils 0 10^3/uL N 0-0.2 Abs Nucleated RBC 0 10^3/uL Granulocyte % 74.7 % N 38-83 Lymphocyte % 15.4 % Low 25-47 Monocyte % 7.3 % High 0-7 Eosinophil % 1.9 % N 0-6 Basophil % 0.7 % N 0-2 Nucleated Red Blood Cells % 0.1 Comp Metabolic Panel 08/11/2017 [facility] Sodium 136 mmol/L N 133-145 [phone] Potassium 3.6 mmol/L N 3.5-5.0 Chloride 101 mmol/L N 101-111 Co2 Carbon Dioxide 23 mmol/L N 22-32 Anion Gap 12 mmol/L High 2-11 Glucose 131 mg/dL High 70-100 Blood Urea Nitrogen 17 mg/dL N 6-24 Creatinine 0.85 mg/dL N 0.51-0.95 BUN/Creatinine Ratio 20.0 N 8-20 Calcium 9.6 mg/dL N 8.6-10.3 Total Protein 7.4 g/dL N 6.4-8.9 Albumin 4.3 g/dL N 3.2-5.2 Globulin 3.1 g/dL N 2-4 Albumin/Globulin Ratio 1.4 N 1-3 Total Bilirubin 0.40 mg/dL N 0.2-1.0 Alkaline Phosphatase 66 U/L N 34-104 Alt 34 U/L N 7-52 Ast 23 U/L N 13-39 Egfr Non- 70.5 >60 Egfr 90.7 >60 10 Laboratory test 08/11/2017 [facility] Lipase 16 U/L N 11.0-82.0 finding [phone] C Reactive Protein 15.74 mg/L High < 5.00 11 Lactic Acid 2.0 mmol/L N 0.5-2.0 12 CA 125 (Ovarian Cancer Ag) 6.4 U/mL N 0-35 13 Laboratory test 06/10/2017 [facility] Cytology SEE RESULT 14 finding [phone] BELOW CBC Auto Diff 06/10/2017 [facility] White Blood 6.6 10^3/uL N 3.5-10 [phone] Count .8 Red Blood Count 4.89 10^6/uL N 4.0-5.4 Hemoglobin 12.8 g/dL N 12.0-16.0 Hematocrit 39 % N 35-47 Mean Corpuscular Volume 80 fL N 80-97 Mean Corpuscular Hemoglobin 26 pg Low 27-31 Mean Corpuscular HGB Conc 33 g/dL N 31-36 Red Cell Distribution Width 15 % N 10.5-15 Platelet Count 259 10^3/uL N 150-450 Mean Platelet Volume 9 um3 N 7.4-10.4 Abs Neutrophils 4.3 10^3/uL N 1.5-7.7 Abs Lymphocytes 1.5 10^3/uL N 1.0-4.8 Abs Monocytes 0.5 10^3/uL N 0-0.8 Abs Eosinophils 0.2 10^3/uL N 0-0.6 Abs Basophils 0.1 10^3/uL N 0-0.2 Abs Nucleated RBC 0 10^3/uL Granulocyte % 65.7 % N 38-83 Lymphocyte % 22.4 % Low 25-47 Monocyte % 8.0 % N 1-9 Eosinophil % 2.7 % N 0-6 Basophil % 1.2 % N 0-2 Nucleated Red Blood Cells % 0.1 Comp Metabolic Panel 06/10/2017 [facility] Sodium 137 mmol/L N 133-145 [phone] Potassium 3.9 mmol/L N 3.5-5.0 Chloride 100 mmol/L Low 101-111 Co2 Carbon Dioxide 28 mmol/L N 22-32 Anion Gap 9 mmol/L N 2-11 Glucose 81 mg/dL N 70-100 Blood Urea Nitrogen 16 mg/dL N 6-24 Creatinine 0.87 mg/dL N 0.51-0.95 BUN/Creatinine Ratio 18.4 N 8-20 Calcium 9.8 mg/dL N 8.6-10.3 Total Protein 7.5 g/dL N 6.4-8.9 Albumin 4.5 g/dL N 3.2-5.2 Globulin 3.0 g/dL N 2-4 Albumin/Globulin Ratio 1.5 N 1-3 Total Bilirubin 0.30 mg/dL N 0.2-1.0 Alkaline Phosphatase 68 U/L N 34-104 Alt 34 U/L N 7-52 Ast 22 U/L N 13-39 Egfr Non- 68.6 >60 Egfr 88.3 >60 15 Lipid Profile 06/10/2017 [facility] Triglycerides 268 mg/dL 16 (Trig/Chol/HDL) [phone] Cholesterol 239 mg/dL 17 HDL Cholesterol 44.8 mg/dL 18 LDL Cholesterol 141 mg/dL 19 Laboratory test 06/10/2017 [facility] TSH (Thyroid 1.84 mcIU/mL N 0.34-5.60 20 finding [phone] Stim Horm) Hemoglobin A1c (Glyco HGB) 6.0 % High 4.0-5.6 21 Laboratory test 07/29/2016 [facility] Surgical SEE RESULT 22, 23 finding [phone] Interface BELOW Order CBC Auto Diff 03/15/2016 [facility] White Blood 7.4 10^3/uL N 3.5-1 24 [phone] Count 0.8 Red Blood Count 4.80 10^6/uL N 4.0-5.4 Hemoglobin 12.5 g/dL N 12.0-16.0 Hematocrit 39 % N 35-47 Mean Corpuscular Volume 81 fL N 80-97 Mean Corpuscular Hemoglobin 26 pg Low 27-31 Mean Corpuscular HGB Conc 32 g/dL N 31-36 Red Cell Distribution Width 15 % N 10.5-15 Platelet Count 228 10^3/uL N 150-450 Mean Platelet Volume 9 um3 N 7.4-10.4 Abs Neutrophils 5.1 10^3/uL N 1.5-7.7 Abs Lymphocytes 1.4 10^3/uL N 1.0-4.8 Abs Monocytes 0.6 10^3/uL N 0-0.8 Abs Eosinophils 0.2 10^3/uL N 0-0.6 Abs Basophils 0.1 10^3/uL N 0-0.2 Abs Nucleated RBC 0 10^3/uL N Granulocyte % 68.6 % N 38-83 Lymphocyte % 19.6 % Low 25-47 Monocyte % 8.6 % N 1-9 Eosinophil % 2.4 % N 0-6 Basophil % 0.8 % N 0-2 Nucleated Red Blood Cells % 0.1 N Comp Metabolic Panel 03/15/2016 [facility] Sodium 136 mmol/L N 133-145 [phone] Potassium 3.5 mmol/L N 3.5-5.0 Chloride 100 mmol/L Low 101-111 Co2 Carbon Dioxide 27 mmol/L N 22-32 Anion Gap 9 mmol/L N 2-11 Glucose 114 mg/dL High 70-100 Blood Urea Nitrogen 18 mg/dL N 6-24 Creatinine 0.76 mg/dL N 0.51-0.95 BUN/Creatinine Ratio 23.7 High 8-20 Calcium 9.1 mg/dL N 8.6-10.3 Total Protein 7.0 g/dL N 6.4-8.9 Albumin 4.1 g/dL N 3.2-5.2 Globulin 2.9 g/dL N 2-4 Albumin/Globulin Ratio 1.4 N 1-3 Total Bilirubin 0.30 mg/dL N 0.2-1.0 Alkaline Phosphatase 63 U/L N 34-104 Alt 28 U/L N 7-52 Ast 20 U/L N 13-39 Egfr Non- 80.6 N >60 Egfr 103.6 N >60 25 Lipid Profile 03/15/2016 [facility] Triglycerides 534 mg/dL N 26 (Trig/Chol/HDL) [phone] Cholesterol 225 mg/dL N 27 HDL Cholesterol 37.8 mg/dL N 28 LDL Cholesterol (SEE NOTE) mg/dL N 29 Laboratory test 03/15/2016 [facility] TSH (Thyroid 1.81 N 0.34-5.60 30 finding [phone] Stimulating mcIU/mL Horm) Urine DIP 01/28/2015 In House Lab Specific 1.015 1.01-1.02 (607)- - Accident Urine pH 6 5-6 Leukocytes neg Neg Urine Nitrites neg Neg Total Protein, Urine neg Neg Urine Glucose norm Norm Urine Ketones neg Neg Urobilinogen norm Norm Urine Bilirubin neg Neg Urine Blood neg Neg CBC Auto Diff 01/17/2015 [facility] White Blood 6.7 10^3/uL N 4.8-10.8 31 [phone] Count Red Blood Count 4.95 10^6/uL N 4.0-5.4 Hemoglobin 13.0 g/dL N 12.0-16.0 Hematocrit 40 % N 35-47 Mean Corpuscular Volume 82 fL N 80-97 Mean Corpuscular Hemoglobin 26 pg Low 27-31 Mean Corpuscular HGB Conc 32 g/dL N 31-36 Red Cell Distribution Width 15 % N 10.5-15 Platelet Count 235 10^3/uL N 150-450 Mean Platelet Volume 8 um3 N 7.4-10.4 Abs Neutrophils 4.9 10^3/uL N 1.5-7.7 Abs Lymphocytes 1.1 10^3/uL N 1.0-4.8 Abs Monocytes 0.4 10^3/uL N 0-0.8 Abs Eosinophils 0.2 10^3/uL N 0-0.6 Abs Basophils 0.1 10^3/uL N 0-0.2 Abs Nucleated RBC 0 10^3/uL N Granulocyte % 73.5 % N 38-83 Lymphocyte % 16.9 % Low 25-47 Monocyte % 6.3 % N 1-9 Eosinophil % 2.4 % N 0-6 Basophil % 0.9 % N 0-2 Nucleated Red Blood Cells % 0 N Comp Metabolic Panel 01/17/2015 [facility] Sodium 138 mmol/L N 133-145 [phone] Potassium 4.1 mmol/L N 3.5-5.0 Chloride 102 mmol/L N 101-111 Co2 Carbon Dioxide 27 mmol/L N 22-32 Anion Gap 9 mmol/L N 2-11 Glucose 95 mg/dL N 70-100 Blood Urea Nitrogen 15 mg/dL N 6-24 Creatinine 0.81 mg/dL N 0.51-0.95 BUN/Creatinine Ratio 18.5 N 8-20 Calcium 8.9 mg/dL N 8.6-10.3 Total Protein 7.1 g/dL N 6.4-8.9 Albumin 4.3 g/dL N 3.2-5.2 Globulin 2.8 g/dL N 2-4 Albumin/Globulin Ratio 1.5 N 1-3 Total Bilirubin 0.50 mg/dL N 0.2-1.0 Alkaline Phosphatase 65 U/L N 34-104 Alt 30 U/L N 7-52 Ast 20 U/L N 13-39 Egfr Non- 75.5 N >60 Egfr 97.1 N >60 32 Lipid Profile 01/17/2015 [facility] Triglycerides 145 mg/dL N 33 (Trig/Chol/HDL) [phone] Cholesterol 222 mg/dL N 34 HDL Cholesterol 39.4 mg/dL N 35 LDL Cholesterol 154 mg/dL N 36 Laboratory test 01/17/2015 [facility] TSH (Thyroid 2.85 N 0.34-5.60 37 finding [phone] Stimulating ?IU/mL Horm) Hemoglobin A1c 6.3 % High Less than 6.0 38 Laboratory test 12/31/2013 [facility] Cytology RUN DATE: 39 finding [phone] 01/01/ <SEE NOTE> HPV High Risk 12/31/2013 [facility] Human See Comment N 40 [phone] Papillomavirus Source HPV High Risk Type 16, PCR Negative N Negative HPV High Risk Type 18, PCR Negative N Negative HPV Other Risk types Negative N Negative 41 CBC No Diff 12/31/2013 [facility] White Blood 7.1 10^ 3/uL N 4.8-10.8 [phone] Count Red Blood Count 5.05 10^6/uL N 4.0-5.4 Hemoglobin 13.5 g/dL N 12.0-16.0 Hematocrit 40 % N 35-47 Mean Corpuscular Volume 80 fL N 80-97 Mean Corpuscular Hemoglobin 27 pg N 27-31 Mean Corpuscular HGB Conc 33 g/dL N 31-36 Red Cell Distribution Width 15 % N 10.5-15 Platelet Count 239 10^3/uL N 150-450 Mean Platelet Volume 9 um3 N 7.4-10.4 Comp Metabolic Panel 12/31/2013 [facility] Sodium 136 mmol/L N 133-145 [phone] Potassium 3.9 mmol/L N 3.7-5.6 Chloride 100 mmol/L Low 101-111 Co2 Carbon Dioxide 29 mmol/L N 22-32 Anion Gap 7 mmol/L N 2-11 Glucose 87 mg/dL N 70-100 Blood Urea Nitrogen 13 mg/dL N 6-24 Creatinine 0.86 mg/dL N 0.51-0.95 BUN/Creatinine Ratio 15.1 N 8-20 Calcium 9.1 mg/dL N 8.6-10.3 Total Protein 7.4 g/dL N 6.4-8.9 Albumin 4.5 g/dL N 3.2-5.2 Globulin 2.9 g/dL N 2-4 Albumin/Globulin Ratio 1.6 N 1-3 Total Bilirubin 0.40 mg/dL N 0.2-1.0 Alkaline Phosphatase 62 U/L N 34-104 Alt 36 U/L N 7-52 Ast 22 U/L N 13-39 Egfr Non- 70.7 N >60 Egfr 91.0 N >60 42 Urine DIP 12/31/2013 In House Lab Specific Accident 1.015 1.01-1.02 (607)- - Urine pH 5 5-6 Leukocytes POS Neg Urine Nitrites TRACE Neg Total Protein, Urine NEG Neg Urine Glucose NORM Norm Urine Ketones NEG Neg Urobilinogen NORM Norm Urine Bilirubin NEG Neg Urine Blood NEG Neg Laboratory test 12/31/2013 [facility] TSH (Thyroid 1.95 IU/mL N 0.34-5.60 finding [phone] Stimulating Horm) Hemoglobin A1c 5.8 % N Less than 6.0 43 Lipid Profile 12/31/2013 [facility] Triglycerides 231 mg/dL N 44 (Trig/Chol/HDL) [phone] Cholesterol 219 mg/dL N 45 HDL Cholesterol 43.9 mg/dL N 46 LDL Cholesterol 129 mg/dL N 47 Lipid Profile 05/18/2013 [facility] Triglycerides 187 mg/dL 40-200 (Trig/Chol/HDL) [phone] Cholesterol 229 mg/dL High Less than 200 HDL Cholesterol 42 mg/dL 40-60 48 Cholesterol/HDL Ratio 5.5 Average High 1-4.44 LDL Cholesterol 149.6 High Less Than 100 49 Comp Metabolic Panel 05/18/2013 [facility] Sodium 133 mmol/L 133-145 [phone] Potassium 4.2 mmol/L 3.5-5.0 Chloride 99 mmol/L Low 101-111 Co2 Carbon Dioxide 27.0 mmol/L 22-32 Anion Gap 7.0 mmol/L 2-11 Glucose 81 mg/dL 70-100 Blood Urea Nitrogen 15 mg/dL 6-24 Creatinine 0.70 mg/dL 0.50-1.40 BUN/Creatinine Ratio 21.4 High 8-20 Calcium 9.5 mg/dL 8.1-9.9 Total Protein 6.8 g/dL 6.2-8.1 Albumin 4.0 g/dL 3.6-5.4 Globulin 2.8 g/dL 2-4 Albumin/Globulin Ratio 1.4 1-3 Total Bilirubin 0.5 mg/dL 0.4-1.5 Alkaline Phosphatase 57 U/L 30-110 Alt 39 U/L 14-54 Ast 23 U/L 12-42 Egfr Non- 89.7 >60 Egfr 115.4 >60 50 Laboratory test 11/21/2012 [facility] TSH (Thyroid 1.89 0.34-5.60 finding [phone] Stimulating miu/mL Horm) Urine DIP 11/21/2012 In House Lab Leukocytes + Neg ([phone] - Urine Nitrites NEG Neg Urine pH 5 5-6 Total Protein, Urine TRACE Neg Urine Glucose NORM Norm Urine Ketones NEG Neg Urobilinogen NORM Norm Urine Bilirubin NEG Neg Urine Blood TRACE-MENSES Neg Lipid Profile 11/21/2012 [facility] Triglycerides 202 mg/dL High 40-200 (Trig/Chol/HDL) [phone] Cholesterol 208 mg/dL High Less than 200 HDL Cholesterol 43 mg/dL 40-60 51 Cholesterol/HDL Ratio 4.8 Average High 1-4.44 LDL Cholesterol 124.6 High Less Than 100 52 Comp Metabolic Panel 11/21/2012 [facility] Sodium 137 mmol/L 133-145 [phone] Potassium 4.0 mmol/L 3.5-5.0 Chloride 102 mmol/L 101-111 Co2 Carbon Dioxide 27.0 mmol/L 22-32 Anion Gap 8.0 mmol/L 2-11 Glucose 94 mg/dL 70-100 Blood Urea Nitrogen 9 mg/dL 6-24 Creatinine 0.90 mg/dL 0.50-1.40 BUN/Creatinine Ratio 10.0 8-20 Calcium 9.1 mg/dL 8.1-9.9 Total Protein 6.3 g/dL 6.2-8.1 Albumin 3.8 g/dL 3.6-5.4 Globulin 2.5 g/dL 2-4 Albumin/Globulin Ratio 1.5 1-3 Total Bilirubin 0.4 mg/dL 0.4-1.5 Alkaline Phosphatase 63 U/L 30-110 Alt 41 U/L 14-54 Ast 26 U/L 12-42 Egfr Non- 67.4 >60 Egfr 86.7 >60 53 CBC No Diff 11/21/2012 [facility] White Blood 6.3 10^ 3/uL 4.8-10.8 [phone] Count Red Blood Count 5.07 10^6/uL 4.0-5.4 Hemoglobin 13.4 g/dL 12.0-16.0 Hematocrit 41 % 35-47 Mean Corpuscular Volume 81 fL 80-97 Mean Corpuscular Hemoglobin 26 pg Low 27-31 Mean Corpuscular HGB Conc 33 g/dL 31-36 Red Cell Distribution Width 15 % 10.5-15 Platelet Count 219 10^3/uL 150-450 Mean Platelet Volume 9 um3 7.4-10.4 CBC No Diff 05/19/2012 [facility] White Blood 7.8 10^ 3/uL 4.8-10.8 [phone] Count Red Blood Count 4.86 10^6/uL 4.0-5.4 Hemoglobin 12.5 g/dL 12.0-16.0 Hematocrit 40 % 35-47 Mean Corpuscular Volume 81 fL 80-97 Mean Corpuscular Hemoglobin 26 pg Low 27-31 Mean Corpuscular HGB Conc 32 g/dL 31-36 Red Cell Distribution Width 15 % 10.5-15 Platelet Count 251 10^3/uL 150-450 Mean Platelet Volume 9 um3 7.4-10.4 Comp Metabolic Panel 05/19/2012 [facility] Sodium 137 mmol/L 133-145 [phone] Potassium 4.3 mmol/L 3.5-5.0 Chloride 101 mmol/L 101-111 Co2 Carbon Dioxide 29.0 mmol/L 22-32 Anion Gap 7.0 mmol/L 2-11 Glucose 85 mg/dL 70-100 Blood Urea Nitrogen 16 mg/dL 6-24 Creatinine 0.90 mg/dL 0.50-1.40 BUN/Creatinine Ratio 17.8 8-20 Calcium 9.7 mg/dL 8.1-9.9 Total Protein 7.2 g/dL 6.2-8.1 Albumin 4.1 g/dL 3.6-5.4 Globulin 3.1 g/dL 2-4 Albumin/Globulin Ratio 1.3 1-3 Total Bilirubin 0.6 mg/dL 0.4-1.5 Alkaline Phosphatase 59 U/L 30-110 Alt 47 U/L 14-54 Ast 29 U/L 12-42 Egfr Non- 67.4 >60 Egfr 86.7 >60 54 Lipid Profile 05/19/2012 [facility] Triglycerides 138 mg/dL 40-200 (Trig/Chol/HDL) [phone] Cholesterol 237 mg/dL High Less than 200 HDL Cholesterol 50 mg/dL 40-60 55 Cholesterol/HDL Ratio 4.7 Average High 1-4.44 LDL Cholesterol 159.4 mg/dL High Less Than 100 56 Basic Metabolic 11/26/2011 [facility] Glucose 120 mg/dL High 70-100 Panel [phone] BUN 21 mg/dL High 4-18 Creatinine, Serum 1.02 mg/dL 0.50-1.10 Sodium 139 mmol/L 136-146 Potassium 3.9 mmol/L 3.5-5.3 Chloride 104 mmol/L 98-110 Carbon Dioxide 24 mmol/L 20-32 Calcium 9.6 mg/dL 8.4-10.4 Egfr (Calculated) 11/26/2011 [facility] Estimated GFR ( CALCULATED) [phone] Egfr 59 Abnormal 57 Egfr, -Trinidadian >60 58 CBC Auto Diff 02/19/2011 [facility] White Blood 7.6 CUMM 4.8-10.8 [phone] Count Red Cell Count 4.63 CUMM 4.2-5.4 Hemoglobin 12.1 g/dL 12.0-16.0 Hematocrit 36 % 35-47 Mean Corpuscular Volume 77 um3 Low 79-97 Mean Corpuscular Hemoglob 26 pg Low 27-31 Mean Corpuscular HGB Cone 34 g/dL 32-36 Redcell Distribution WDTH 16 % High 10.5-15 Platelet Count 269 CUMM 150-450 Mean Platelet Volume 9.2 um3 7.4-10.4 Gran % 74.5 % 38-83 Lymph % 18.1 % Low 25-47 Mononuclear % 5.6 % 1-9 Eosinophil % 1.3 % 0-6 Basophil % 0.5 % 0-2 Abs Lymphs 1.4 1.0-4.8 Abs Mononuclear 0.4 0-0.8 Absolute Neutrophil Count 5.6 1.5-7.7 Abs Eosinophils 0.1 0-0.6 Abs Basophils 0 0-0.2 59 Basic Metabolic 12/16/2010 [facility] Sodium 138 mmol /L 135-145 Panel [phone] Potassium 4.2 mmol/L 3.5-5.0 Chloride 105 mmol/L 101-111 Co2 (Carbon Dioxide) 27.0 mmol/L 22-32 Anion Gap 6.0 mmol/L 2-11 60 Glucose 133 mg/dL High 70-100 BUN 14 mg/dL 6-24 Creatinine 0.77 mg/dL 0.50-1.40 One Over Creatinine 1.20 BUN/Creatinine Ratio 18.2 8-20 Calcium 9.0 mg/dL 8.1-9.9 eGFR Non- 81.4 > 60 eGFR 104.7 > 60 61 Urine DIP 11/17/2010 In House Lab Leukocytes NEG Neg (607)- - Urine Nitrites NEG Neg Urine pH 5 5-6 Total Protein, Urine NEG Neg Urine Glucose NORM Norm Urine Ketones NEG Neg Urobilinogen NORM Norm Urine Bilirubin NEG Neg Urine Blood NEG Neg Specific Accident N/A Low 1.01-1.02 Laboratory test 11/17/2010 [facility] Cytology ------ 62 finding [phone] <SEE NOTE> CBC Auto Diff 11/12/2010 [facility] White Blood 6.2 CUMM 4.8- [phone] Count 10.8 Red Cell Count 4.80 CUMM 4.2-5.4 Hemoglobin 11.8 g/dL Low 12.0-16.0 Hematocrit 36 % 35-47 Mean Corpuscular Volume 75 um3 Low 79-97 Mean Corpuscular Hemoglob 25 pg Low 27-31 Mean Corpuscular HGB Cone 33 g/dL 32-36 Redcell Distribution WDTH 16 % High 10.5-15 Platelet Count 240 CUMM 150-450 Mean Platelet Volume 9.0 um3 7.4-10.4 Gran % 69.4 % 38-83 Lymph % 22.0 % Low 25-47 Mononuclear % 6.3 % 1-9 Eosinophil % 1.8 % 0-6 Basophil % 0.5 % 0-2 Abs Lymphs 1.4 1.0-4.8 Abs Mononuclear 0.4 0-0.8 Absolute Neutrophil Count 4.3 1.5-7.7 Abs Eosinophils 0.1 0-0.6 Abs Basophils 0 0-0.2 63 Comp Metabolic Panel 11/12/2010 [facility] Sodium 137 mmol/L 135-145 [phone] Potassium 4.2 mmol/L 3.5-5.0 Chloride 103 mmol/L 101-111 Co2 (Carbon Dioxide) 27.0 mmol/L 22-32 Anion Gap 7.0 mmol/L 2-11 64 Glucose 85 mg/dL 70-100 BUN 9 mg/dL 6-24 Creatinine 0.80 mg/dL 0.50-1.40 One Over Creatinine 1.20 BUN/Creatinine Ratio 11.3 8-20 Calcium 8.7 mg/dL 8.1-9.9 Total Protein 6.2 GM/DL 6.2-8.1 Albumin 4.0 GM/DL 3.6-5.4 Globulin 2.2 GM/DL 2-4 Albumin/Globulin Ratio 1.8 1-3 Bilirubin Total 0.9 mg/dL 0.4-1.5 65 Alkaline Phosphatase 71 U/L 30-110 Alt (SGPT) 30 U/L 14-54 Ast (Sgot) 23 U/L 12-42 eGFR Non- 77.9 > 60 eGFR 100.2 > 60 66 Laboratory test 11/12/2010 [facility] TSH 1.77 MIU/ ML 0.34-5.60 finding [phone] Lipid Profile 11/12/2010 [facility] Triglyceride 176 mg/dL 40-200 (Trig/Chol/HDL) [phone] Cholesterol 224 mg/dL High Less Than 200 67 High Density Lipoprotein 45 mg/dL 40-60 68 Cholesterol/HDL Ratio 4.98 AVERAGE High 1-4.44 Low Density Lipoprotein 144 mg/dL High Less Than 100 69 Lipid Profile 04/10/2008 [facility] Triglyceride 117 mg/dL 40-200 (Trig/Chol/HDL) [phone] Cholesterol 220 mg/dL High Less Than 200 70 High Density Lipoprotein 43 mg/dL 40-60 71 Cholesterol/HDL Ratio 5.12 AVERAGE High 1-4.44 Low Density Lipoprotein 154 mg/dL High Less Than 100 72 Laboratory test 04/10/2008 [facility] TSH 1.41 MIU/ ML 0.34-5.60 finding [phone] CBC With 04/10/2008 [facility] White Blood 5.5 CUMM 4.8-10.8 Electronic Diff [phone] Count Red Cell Count 4.90 CUMM 4.2-5.4 Hemoglobin 12.1 g/dL 12.0-16.0 Hematocrit 36 % 35-47 Mean Corpuscular Volume 74 um3 Low 79-97 Mean Corpuscular Hemoglob 25 pg Low 27-31 Mean Corpuscular HGB Cone 33 g/dL 32-36 Redcell Distribution WDTH 16 % High 10.5-15 Platelet Count 276 CUMM 150-450 Mean Platelet Volume 7.9 um3 7.4-10.4 Gran % 68.6 % 38-83 Lymph % 23.8 % Low 25-47 Mononuclear % 5.5 % 1-9 Eosinophil % 1.8 % 0-6 Basophil % 0.3 % 0-2 Abs Lymphs 1.3 1.0-4.8 Abs Mononuclear 0.3 0-0.8 Absolute Neutrophil Count 3.8 1.5-7.7 Abs Eosinophils 0.1 0-0.6 Abs Basophils 0 0-0.2 73 Comp Metabolic Panel 04/10/2008 [facility] Sodium 138 mmol/L 135-145 [phone] Potassium 4.4 mmol/L 3.5-5.0 Chloride 104 mmol/L 101-111 Co2 (Carbon Dioxide) 28.0 mmol/L 22-32 Anion Gap 6.0 mmol/L 2-11 74 Glucose 78 mg/dL 70-100 75 BUN 11 mg/dL 6-24 Creatinine 0.76 mg/dL 0.50-1.40 One Over Creatinine 1.30 BUN/Creatinine Ratio 14.5 8-20 Calcium 9.0 mg/dL 8.1-9.9 76 Total Protein 7.0 GM/DL 6.2-8.1 Albumin 3.9 GM/DL 3.6-5.4 Globulin 3.1 GM/DL 2-4 Albumin/Globulin Ratio 1.3 1-3 Bilirubin Total 0.6 mg/dL 0.4-1.5 Alkaline Phosphatase 73 U/L 30-110 Alt (SGPT) 29 U/L 14-54 Ast (Sgot) 20 U/L 12-42 Laboratory test 04/10/2008 [facility] Acth 9.6 pg/mL Abnormal () 77 finding [phone] Morph 04/10/2008 [facility] Anisocytosis 1+ [phone] Microcytosis 1+ Laboratory test 04/03/2008 [facility] Cytology ------ 78 finding [phone] <SEE NOTE> Urine DIP 04/03/2008 In House Lab Leukocytes neg Neg (607)- - Urine Nitrites neg Neg Urine pH 5 5-6 Total Protein, Urine neg Neg Urine Glucose norm Norm Urine Ketones neg Neg Urobilinogen norm Norm Urine Bilirubin neg Neg Urine Blood neg Neg Specific Accident n/a Low 1.01-1.02 Laboratory test 04/13/2006 [facility] Hemoglobin A1c 5.8 % <6.0 79 finding [phone] TSH 1.73 MIU/ML 0.34-5.60 Lipid Profile 04/13/2006 [facility] Cholesterol/HDL 4.56 High 1-4.44 (Trig/Chol/HDL) [phone] Ratio AVERAGE Cholesterol 219 mg/dL High Less Than 200 80 Triglyceride 74 mg/dL 40-200 High Density Lipoprotein 48 mg/dL 40-60 Low Density Lipoprotein 156 mg/dL High Less Than 100 81 Comp Metabolic 04/13/2006 [facility] One Over Creatinine 1.11 Panel [phone] Anion Gap 7.0 mmol/L 2-11 82 Albumin/Globulin Ratio 1.3 1-3 Albumin 3.9 GM/DL 3.6-5.4 Alkaline Phosphatase 74 U/L 30-110 Alt (SGPT) 28 U/L 14-54 Ast (Sgot) 19 U/L 12-42 BUN 13 mg/dL 6-24 Calcium 8.8 mg/dL 8.7-10.2 Chloride 101 mmol/L 101-111 Co2 (Carbon Dioxide) 27.0 mmol/L 22-32 Globulin 2.9 GM/DL 2-4 Glucose 72 mg/dL 70-105 Potassium 4.5 mmol/L 3.5-5.0 Sodium 135 mmol/L 135-145 Bilirubin Total 0.7 mg/dL 0.4-1.5 Total Protein 6.8 GM/DL 6.2-8.1 BUN/Creatinine Ratio 14.4 8-20 Creatinine 0.9 mg/dL 0.5-1.4 CBC With Manual 04/13/2006 [facility] White Blood 8.1 CUMM 4.8-10.8 Diff [phone] Count Hematocrit 37 % 35-47 Hemoglobin 12.4 g/dL 12.0-16.0 Mean Corpuscular HGB Cone 33 g/dL 32-36 Mean Corpuscular Hemoglob 26 pg Low 27-31 Mean Corpuscular Volume 79 um3 79-97 Mean Platelet Volume 8.7 um3 7.4-10.4 Platelet Count 303 CUMM 150-450 Polysegmented Neutrophil 55 % 38-83 Red Cell Count 4.72 CUMM 4.2-5.4 Redcell Distribution WDTH 15 % 10.5-15 Absolute Neutrophil Count 4.5 Atypical Lymph 8 % High 0-6 Anisocytosis SLIGHT Band Neutrophil 1 % 0-8 Eosenophil 6 % 0-6 Lymphocyte 25 % 5-47 Monocyte 5 % 0-13 Polychromasia SLIGHT Urine DIP 04/06/2006 In House Lab Leukocytes 2+ High Neg (607)- - Urine Nitrites NEG Neg Urine pH 5 5-6 Total Protein, Urine NL Neg Urine Glucose NL Norm Urine Ketones NL Neg Urobilinogen NL Norm Urine Bilirubin NL Neg Urine Blood NL Neg Specific Accident N/A Low 1.01-1.02 Laboratory test 04/06/2006 [facility] Cytology ------ <SEE 83 finding [phone] NOTE> 1 Because ethnic data is not always readily available, this report includes an eGFR for both -Americans and non- Americans. The National Kidney Disease Education Program (NKDEP) does not endorse the use of the MDRD equation for patients that are not between the ages of 18 and 70, are , have extremes of body size, muscle mass, or nutritional status, or are non- or non-. According to the National Kidney Foundation, irrespective of diagnosis, the stage of the disease is based on the level of kidney function: Stage Description GFR(mL/min/1.73 m(2)) 1 Kidney damage with normal or decreased GFR 90 2 Kidney damage with mild decrease in GFR 60-89 3 Moderate decrease in GFR 30-59 4 Severe decrease in GFR 15-29 5 Kidney failure <15 (or dialysis) 2 [id number] 3 Therapeutic target for the treatment of diabetes mellitus patients is <7% HBA1C, and in selective patients <6.0%. Please refer to [place] Diabetes Association diabetic care guidelines for further information. 4 [id number] 5 Desirable: <150 Borderline High: 150-199 High: 200-499 Very High: >500 6 Desirable: <200 Borderline High: 200-239 High: >239 7 Low: <40 Desirable: 40-60 High: >60 8 Desirable: <100 Near Optimal: 100-129 Borderline High: 130-159 High: 160-189 Very High: >189 9 Because ethnic data is not always readily available, this report includes an eGFR for both -Americans and non- Americans. The National Kidney Disease Education Program (NKDEP) does not endorse the use of the MDRD equation for patients that are not between the ages of 18 and 70, are , have extremes of body size, muscle mass, or nutritional status, or are non- or non-. According to the National Kidney Foundation, irrespective of diagnosis, the stage of the disease is based on the level of kidney function: Stage Description GFR(mL/min/1.73 m(2)) 1 Kidney damage with normal or decreased GFR 90 2 Kidney damage with mild decrease in GFR 60-89 3 Moderate decrease in GFR 30-59 4 Severe decrease in GFR 15-29 5 Kidney failure <15 (or dialysis) 10 Because ethnic data is not always readily available, this report includes an eGFR for both -Americans and non- Americans. The National Kidney Disease Education Program (NKDEP) does not endorse the use of the MDRD equation for patients that are not between the ages of 18 and 70, are , have extremes of body size, muscle mass, or nutritional status, or are non- or non-. According to the National Kidney Foundation, irrespective of diagnosis, the stage of the disease is based on the level of kidney function: Stage Description GFR(mL/min/1.73 m(2)) 1 Kidney damage with normal or decreased GFR 90 2 Kidney damage with mild decrease in GFR 60-89 3 Moderate decrease in GFR 30-59 4 Severe decrease in GFR 15-29 5 Kidney failure <15 (or dialysis) 11 Acute inflammation: >10.00 12 [facility] Severe Sepsis and Septic Shock Management Bundle Measure requires all lactic acids initially measuring >2.0 mmol/L be repeated. 13 Instrument used is [employer] DXI 600. The assay is a two-site immunoenzymatic "sandwich" assay. Do not interpret CA125 levels as absolute evidence of the presence or the absence of malignant disease. Use in conjunction with information from the clinical evaluation of the patient and other diagnostic procedures. Values obtained with different assay methods cannot be used interchangeably. 14 SEE RESULT BELOW Name: MICHAEL QUISPE : [address]: Mallory Biswas NP Acct: [id number] Unit: [id number] AGE: 52 Location: [facility] Re06/10/17 SEX: F Status: REG REF SPEC: [id number] HIMANSHU: 06/10/17-[address]: Mallory Biswas NP REQ: [id number] RECD: 06/10/17 STATUS: SOUT _ ORDERED: TP IMAGE ANAL, HPV/Thin Prep, HPV 16/18 GENE COMMENTS: [id number] Negative for Intraepithelial lesion or Malignancy A. Ectocervical/Endocervical Specimen Adequacy: Satisfactory of evaluation Transformation zone component not identified Patient Information: HPV: High risk HPV RNA testing regardless of pap results. HPV 16/18 Genotype Reflex Actual Specimen Date: 06/10/17 Date of Last Specimen: 12/31/13 Date Time Test Result Flag (u) Normal Range 06/10/17 1515 @ HPV RNA RFLX GE Negative Negative @ @ The high-risk HPV types detected by the assay include: 16, @ 18, 31, 33, 35, 39, 45, 51, 52, 56, 58, 59, 66, and 68. Signed (signature on file) MALCOLM Jerry(ASCP) 06/13 3289 This Pap test was evaluated with the assistance of the Bundle [employer]p Test Imaging System. Due to cytologic findings at the hat designer microscope, comprehensive manual rescreening by a As400 Operator may be required. The Pap Smear is a screening test designed to aid in the detection of premalignant and malignant conditions of the uterine cervix. It is not a diagnostic procedure and should not be used as the sole means of detecting cervical cancer. Both false- positive and false- negative reports do occur. Depending on your risk status, a Pap smear should be obtained and evaluated every 1-3 years. END OF REPORT * ML=Testing performed at Main Lab DEPARTMENT OF PATHOLOGY, [address] [place] [address] Aknur Torres M.D. Director [facility] # [id number] 15 Because ethnic data is not always readily available, this report includes an eGFR for both -Americans and non- Americans. The National Kidney Disease Education Program (NKDEP) does not endorse the use of the MDRD equation for patients that are not between the ages of 18 and 70, are , have extremes of body size, muscle mass, or nutritional status, or are non- or non-. According to the National Kidney Foundation, irrespective of diagnosis, the stage of the disease is based on the level of kidney function: Stage Description GFR(mL/min/1.73 m(2)) 1 Kidney damage with normal or decreased GFR 90 2 Kidney damage with mild decrease in GFR 60-89 3 Moderate decrease in GFR 30-59 4 Severe decrease in GFR 15-29 5 Kidney failure <15 (or dialysis) 16 Desirable: <150 Borderline High: 150-199 High: 200-499 Very High: >500 17 Desirable: <200 Borderline High: 200-239 High: >239 18 Low: <40 Desirable: 40-60 High: >60 19 Desirable: <100 Near Optimal: 100-129 Borderline High: 130-159 High: 160-189 Very High: >189 20 [id number] 21 Therapeutic target for the treatment of diabetes mellitus patients is <7% HBA1C, and in selective patients <6.0%. Please refer to [place] Diabetes Association diabetic care guidelines for further information. 22 [id number] 23 SEE RESULT BELOW Name: MICHAEL QUISPE : [address]: Willis Knight MD Acct: [id number] Unit: [id number] AGE: 51 Location: [facility] Re07/29/16 SEX: F Status: DEP REF SPEC: [id number] HIMANSHU: 07/29/16-1122 [facility] DR: Willis Knight MD REQ: [id number] RECD: 07/29/16-0430 STATUS: CAITIE MONREAL DR: Mallory Biswas [employer] _ ORDERED: LEVEL IV/2 COMMENTS: [id number] FINAL DIAGNOSIS 1. Colon, hepatic flexure, biopsy: -- Hyperplastic polyp. 2. Colon, rectum, biopsy: -- Hyperplastic polyps (3). CLINICAL HISTORY No history given POST-OPERATIVE DIAGNOSIS Colonoscopy to cecum - hepatic flexure snared, biopsy x3 rectum, tics; 5 years GROSS DESCRIPTION 1. The specimen is received in formalin labeled, Hepatic Flexure Polyp, and consists of a 0.8 x 0.5 x 0.2 cm lomas-pink polypoid soft tissue fragment, which is entirely submitted in one cassette. 2. The specimen is received in formalin labeled, Biopsy Rectal Polyps ( Three), and consists of three lomas-pink irregular to polypoid soft tissue fragments measuring 0.4 x 0.3 x 0.2 cm, 0.5 x 0.3 x 0.2 cm and 0.8 x 0.2 x 0.2 cm which are entirely submitted in one cassette. Signed (signature on file) Lynn Arias MD 08/13 1130 END OF REPORT * ML=Testing performed at Main Lab DEPARTMENT OF PATHOLOGY, [address] [place] [address] Ankur Torres M.D. Director [facility] # [id number] 25 Because ethnic data is not always readily available, this report includes an eGFR for both -Americans and non- Americans. The National Kidney Disease Education Program (NKDEP) does not endorse the use of the MDRD equation for patients that are not between the ages of 18 and 70, are , have extremes of body size, muscle mass, or nutritional status, or are non- or non-. According to the National Kidney Foundation, irrespective of diagnosis, the stage of the disease is based on the level of kidney function: Stage Description GFR(mL/min/1.73 m(2)) 1 Kidney damage with normal or decreased GFR 90 2 Kidney damage with mild decrease in GFR 60-89 3 Moderate decrease in GFR 30-59 4 Severe decrease in GFR 15-29 5 Kidney failure <15 (or dialysis) 26 Desirable <150 Borderline high 150-199 High 200-499 Very High >500 27 Desirable <200 Borderline high 200-239 High >239 28 Low <40 Desirable: 40-60 High: >60 29 Unable to calculate LDL as triglyceride is > 400 30 [id number] FASTING 32 Because ethnic data is not always readily available, this report includes an eGFR for both -Americans and non- Americans. The National Kidney Disease Education Program (NKDEP) does not endorse the use of the MDRD equation for patients that are not between the ages of 18 and 70, are , have extremes of body size, muscle mass, or nutritional status, or are non- or non-. According to the National Kidney Foundation, irrespective of diagnosis, the stage of the disease is based on the level of kidney function: Stage Description GFR(mL/min/1.73 m(2)) 1 Kidney damage with normal or decreased GFR 90 2 Kidney damage with mild decrease in GFR 60-89 3 Moderate decrease in GFR 30-59 4 Severe decrease in GFR 15-29 5 Kidney failure <15 (or dialysis) 33 Desirable <150 Borderline high 150-199 High 200-499 Very High >500 34 Desirable <200 Borderline high 200-239 High >239 35 Low <40 Desirable: 40-60 High: >60 36 Desirable: <100 mg/dL Near Optimal: 100-129 mg/dL Borderline High: 130-159 mg/dL High: 160-189 mg/dL Very High: >189 mg/dL 37 FASTING 38 Therapeutic target for the treatment of diabetes Mellitus patients is <7% HBA1C, and in selective patients <6.0%.Please refer to [place] [employer] Diabetic care guidelines for further information. 39 RUN DATE: 01/01/14 [facility] LIVE PAGE 1 RUN TIME: [address] [place] [id number] Specimen Inquiry Name: MICHAEL QUISPE : [address]: Mallory Biswas NP Acct: [id number] Unit: [id number] AGE: 48 Location: [facility] Re12/31/13 SEX: F Status: REG REF SPEC: [id number] HIMANSHU: 12/31/13-0935 [facility] DR: Mallory Biswas NP REQ: [id number] RECD: 12/31/13-1227 STATUS: SOUT _ ORDERED: IMAGE ANALYSIS, HPV/Thin Prep FINAL DIAGNOSIS Negative for Intraepithelial lesion or Malignancy COMMENTS: Specimen sent to [facility] [employer] in [place], [place] on 01/01/14 by [id number] at 1227. Results will be reported separately. A. Ectocervical/Endocervical Specimen Adequacy: Satisfactory of evaluation Transformation zone component identified Patient Information: HPV: High risk HPV DNA testing regardless of pap results. Actual Specimen Date: 12/31/13 Last Menstrual Date: 12/17/13 Signed (signature on file) MALCOLM Mckenna (ASCP) 01/01 1504 This Pap test was evaluated with the assistance of the [employer] Test Imaging System. Due to cytologic findings at the hat designer microscope, comprehensive manual rescreening by a As400 Operator may be required. The Pap Smear is a screening test designed to aid in the detection of premalignant and malignant conditions of the uterine cervix. It is not a diagnostic procedure and should not be used as the sole means of detecting cervical cancer. Both false- positive and false- negative reports do occur. Depending on your risk status, a Pap smear shoudl be obtained and evaluated every 1-3 years. END OF REPORT * ML=Testing performed at Main Lab DEPARTMENT OF PATHOLOGY, [address] [place] [address] Ankur Torres M.D. Director [facility] # [id number] RESULT: Ectocervical/Endocervical 41 The following Other High Risk HPV types were not detected: 31, 33, 35, 39, 45, 51, 52, 56, 58, 59, 66, and 68 Test Performed by: [place] [address] [employer]: Krish Tenorio III, M.D. 42 Because ethnic data is not always readily available, this report includes an eGFR for both -Americans and non- Americans. The National Kidney Disease Education Program (NKDEP) does not endorse the use of the MDRD equation for patients that are not between the ages of 18 and 70, are , have extremes of body size, muscle mass, or nutritional status, or are non- or non-. According to the National Kidney Foundation, irrespective of diagnosis, the stage of the disease is based on the level of kidney function: Stage Description GFR(mL/min/1.73 m(2)) 1 Kidney damage with normal or decreased GFR 90 2 Kidney damage with mild decrease in GFR 60-89 3 Moderate decrease in GFR 30-59 4 Severe decrease in GFR 15-29 5 Kidney failure <15 (or dialysis) 43 Therapeutic target for the treatment of diabetes Mellitus patients is <7% HBA1C, and in selective patients <6.0%.Please refer to [place] [employer] Diabetic care guidelines for further information. 44 Desirable <150 Borderline high 150-199 High 200-499 Very High >500 45 Desirable <200 Borderline high 200-239 High >239 46 Low <40 Desirable: 40-60 High: >60 47 Desirable <100 Near Optimal 100-129 Borderline high 130-159 High 160-189 Very High >189 48 HDL Interpretation: Undesirable: High Risk: Less than 40 mg/dL Desirable: Low Risk: Greater than 60 mg/dL 49 LDL Interpretation: Low Risk Optimal Level: LDL Less than 100 mg/dL Near or Above Optimal: LDL 100-129 mg/dL Borderline High Risk: LDL 130-159 mg/dL High Risk: LDL 160-189 mg/dL Very High Risk: LDL Greater than 189 mg/dL 50 Because ethnic data is not always readily available, this report includes an eGFR for both -Americans and non- Americans. The National Kidney Disease Education Program (NKDEP) does not endorse the use of the MDRD equation for patients that are not between the ages of 18 and 70, are , have extremes of body size, muscle mass, or nutritional status, or are non- or non-. According to the National Kidney Foundation, irrespective of diagnosis, the stage of the disease is based on the level of kidney function: Stage Description GFR(mL/min/1.73 m(2)) 1 Kidney damage with normal or decreased GFR 90 2 Kidney damage with mild decrease in GFR 60-89 3 Moderate decrease in GFR 30-59 4 Severe decrease in GFR 15-29 5 Kidney failure <15 (or dialysis) 51 HDL Interpretation: Undesirable: High Risk: Less than 40 mg/dL Desirable: Low Risk: Greater than 60 mg/dL 52 LDL Interpretation: Low Risk Optimal Level: LDL Less than 100 mg/dL Near or Above Optimal: LDL 100-129 mg/dL Borderline High Risk: LDL 130-159 mg/dL High Risk: LDL 160-189 mg/dL Very High Risk: LDL Greater than 189 mg/dL 53 Because ethnic data is not always readily available, this report includes an eGFR for both -Americans and non- Americans. The National Kidney Disease Education Program (NKDEP) does not endorse the use of the MDRD equation for patients that are not between the ages of 18 and 70, are , have extremes of body size, muscle mass, or nutritional status, or are non- or non-. According to the National Kidney Foundation, irrespective of diagnosis, the stage of the disease is based on the level of kidney function: Stage Description GFR(mL/min/1.73 m(2)) 1 Kidney damage with normal or decreased GFR 90 2 Kidney damage with mild decrease in GFR 60-89 3 Moderate decrease in GFR 30-59 4 Severe decrease in GFR 15-29 5 Kidney failure <15 (or dialysis) 54 Because ethnic data is not always readily available, this report includes an eGFR for both -Americans and non- Americans. The National Kidney Disease Education Program (NKDEP) does not endorse the use of the MDRD equation for patients that are not between the ages of 18 and 70, are , have extremes of body size, muscle mass, or nutritional status, or are non- or non-. According to the National Kidney Foundation, irrespective of diagnosis, the stage of the disease is based on the level of kidney function: Stage Description GFR(mL/min/1.73 m(2)) 1 Kidney damage with normal or decreased GFR 90 2 Kidney damage with mild decrease in GFR 60-89 3 Moderate decrease in GFR 30-59 4 Severe decrease in GFR 15-29 5 Kidney failure <15 (or dialysis) 55 HDL Interpretation: Undesirable: High Risk: Less than 40 MG/DL Desirable: Low Risk: Greater than 60 MG/DL 56 LDL Interpretation: Low Risk Optimal Level: LDL Less than 100 MG/DL Near or Above Optimal: LDL 100-129 MG/DL Borderline High Risk: LDL 130-159 MG/DL High Risk: LDL 160-189 MG/DL Very High Risk: LDL Greater than 189 MG/DL 57 >59 mL/min/1.73m2 58 >59 mL/min/1.73m2 Note: Persistent reduction for 3 months or more in an eGFR <60 mL/min/1.73m2 defines CKD. Patients with eGFR values >=60 mL/min/1.73m2 may also have CKD if evidence of persistent proteinuria is present. Additional information may be found at www.kidney.org/professionals/kdoqi. 59 Lymphopenia % 60 Anion gap measurement may be of limited value in the presence of any alkalosis, especially in a combined acid base disorder. . 61 Because ethnic data is not always readily available, this report includes an eGFR for both -Americans and non- Americans. The National Kidney Disease Education Program (NKDEP) does not endorse the use of the MDRD equation for patients that are not between the ages of 18 and 70, are , have extremes of body size, muscle mass, or nutritional status, or are non- or non-. According to the National Kidney Foundation, irrespective of diagnosis, the stage of the disease is based on the level of kidney function: Stage Description GFR(mL/min/1.73 m(2)) 1 Kidney damage with normal or decreased GFR 90 2 Kidney damage with mild decrease in GFR 60-89 3 Moderate decrease in GFR 30-59 4 Severe decrease in GFR 15-29 5 Kidney failure <15 (or dialysis) 62 ---- RUN DATE: 11/18/10 [facility] NMI LIVE PAGE 1 RUN TIME: 846 Specimen Inquiry RUN USER: INTERFACE -- Name: MICHAEL QUISPE Status: REG REF Re11/17/10 Age/Sex: 45/F Unit#: [id number] Location: [facility] : 67 -- Specimen: [id number] SOUT Spec Date: 11/17/[address]: Mallory glaser NP Spec Type: CYTOLOGY Received: 11/17/10-1321 Copies to: SOURCE ECTOCERVICAL/ENDOCERVICAL Thin Prep with Reflex HPV Test PATIENT INFORMATION ACTUAL COLLECTION DATE: 11/17/10 LAST MENSTRUAL PERIOD: 10/29/10 ADEQUACY OF SPECIMEN Satisfactory for evaluation * Transformation zone component identified * DIAGNOSIS NEGATIVE FOR INTRAEPITHELIAL LESION OR MALIGNANCY * This Pap test was evaluated with the assistance of the PlatialPrep Pap Test Imaging System. The Pap Smear is a screening test designed to aid in the detection of premalign ant and malignant conditions of the uterine cervix. It is not a diagnostic procedure a nd should not be used as the sole means of detecting cervical cancer. Both false- positiv e and false-negative reports do occur. Depending on your risk status, a Pap smear sandro uld be obtained and evaluated every one to three years. Final Interpretation electronically signed by: Sohail DE LA ROSA([facility]) 11/18/10 084 7 -- -- DEPARTMENT OF PATHOLOGY, [address] [place] [address] [facility] Permit #[id number] Ankur Torres M.D. Director Amanda Tello M.D. General Road Supervisor Dir jennifer -- 63 1+ Microcytosis 64 Anion gap measurement may be of limited value in the presence of any alkalosis, especially in a combined acid base disorder. . 65 A metabolite of Naproxen, O-desmethylnaproxen, has been shown to interfere with the Jendrassik-Tanacross method for measuring total bilirubin. Samples from patients who have taken Naproxen have shown spurious elevation in total bilirubin levels. 66 Because ethnic data is not always readily available, this report includes an eGFR for both -Americans and non- Americans. The National Kidney Disease Education Program (NKDEP) does not endorse the use of the MDRD equation for patients that are not between the ages of 18 and 70, are , have extremes of body size, muscle mass, or nutritional status, or are non- or non-. According to the National Kidney Foundation, irrespective of diagnosis, the stage of the disease is based on the level of kidney function: Stage Description GFR(mL/min/1.73 m(2)) 1 Kidney damage with normal or decreased GFR 90 2 Kidney damage with mild decrease in GFR 60-89 3 Moderate decrease in GFR 30-59 4 Severe decrease in GFR 15-29 5 Kidney failure <15 (or dialysis) 67 CHOLESTEROL INTERPRETATION: Desirable: Less than 200 MG/DL Borderline-High Risk: 200-239 MG/DL High-Risk: 240 MG/DL and over 68 HDL INTERPRETATION: Undesirable: High Risk: Less than 40 MG/DL Desirable: Low Risk: Greater than 60 MG/DL 69 LDL INTERPRETATION: Low Risk Optimal Level: LDL Less than 100 MG/DL Near or Above Optimal: LDL 100-129 MG/DL Borderline High Risk: LDL 130-159 MG/DL High Risk: LDL 160-189 MG/DL Very High Risk: LDL Greater than 189 MG/DL 70 CHOLESTEROL INTERPRETATION: Desirable: Less than 200 MG/DL Borderline-High Risk: 200-239 MG/DL High-Risk: 240 MG/DL and over 71 HDL INTERPRETATION: Undesirable: High Risk: Less than 40 MG/DL Desirable: Low Risk: Greater than 60 MG/DL 72 LDL INTERPRETATION: Low Risk Optimal Level: LDL Less than 100 MG/DL Near or Above Optimal: LDL 100-129 MG/DL Borderline High Risk: LDL 130-159 MG/DL High Risk: LDL 160-189 MG/DL Very High Risk: LDL Greater than 189 MG/DL 73 1+ Microcytosis 74 Anion gap measurement may be of limited value in the presence of any alkalosis, especially in a combined acid base disorder. . 75 Note change in reference range as of 01/18/08. The change was based on recommendations from the [place] [employer]. 76 Please note change in reference range effective 07 . 77 -- REFERENCE VALUE -- 10-60 (a.m. draw) Test Performed by: [facility] Lab Med and Pathology [address] [place], [place] [id number] Strawhat Sizer: Krish Tenorio III, M.D. 78 ---- RUN DATE: 04/05/08 [facility] NMI LIVE PAGE 1 RUN TIME: 1257 Specimen Inquiry RUN USER: INTERFACE -- Name: MICHAEL QUISPE Accgustavo#: [id number] Status: REG REF Re04/03/08 Age/Sex: 43/F Unit#: [id number] Location: [facility] : 67 -- Specimen: [id number] CAITIE Spec Date: 04/03/[address]: Tracy peters MD Spec Type: CYTOLOGY Received: 04/04/08 Copies to: SOURCE ECTOCERVICAL/ENDOCERVICAL Thin Prep with Reflex HPV Test PATIENT INFORMATION ACTUAL COLLECTION DATE: 04/03/08 LAST MENSTRUAL PERIOD: 03/09/08 DATE OF PRIOR SPECIMEN: 04/06/06 ADEQUACY OF SPECIMEN Satisfactory for evaluation * Transformation zone component identified * DIAGNOSIS NEGATIVE FOR INTRAEPITHELIAL LESION OR MALIGNANCY * Fungal organisms morphologically consistent with Doreen species * This Pap test was evaluated with the assistance of the PlatialPrep Pap Test Imaging System. The Pap Smear is a screening test designed to aid in the detection of premalign ant and malignant conditions of the uterine cervix. It is not a diagnostic procedure a nd should not be used as the sole means of detecting cervical cancer. Both false- positive and false-negative reports do occur. Depending on your risk status, a Pap smear sandro uld be obtained and evaluated every one to three years. Final Interpretation electronically signed by: Sohail DE LA ROSA(AS[facility]) 04/05/08 125 7 -- -- DEPARTMENT OF PATHOLOGY, [address] [place] [address] [facility] Permit #[id number] Ankur Torres M.D. Director of [employer] -- 79 THERAPEUTIC TARGET FOR THE TREATMENT OF DIABETES MELLITUS PATIENTS IS <7% HBA1C, AND IN SELECTIVE PATIENTS <6.0%. PLEASE REFER TO [place] [employer] DIABETIC CARE GUIDELINES FOR FURTHER INFORMATION. 80 Classification: Borderline High . 81 CALCULATED LDL APPROXIMATES THE VALUE OF A DIRECT LDL MEASUREMENT. Classification: Borderline High . 82 Anion gap measurement may be of limited value in the presence of any alkalosis, especially in a combined acid base disorder. . 83 ---- RUN DATE: 04/13/06 [facility] NMI LIVE PAGE 1 RUN TIME: 1350 Specimen Inquiry RUN USER: INTERFACE [id number] MICHAEL QUISPE 41/F <REG REF 04/06> ([id number]) Nabor Austin NP. -- Specimen: [id number] CAITIE Spec Date: 04/06/[address]: Tamika lewis NP. Spec Type: CYTOLOGY Received: 04/11/06-1353 Copies to: SOURCE ECTOCERVICAL/ENDOCERVICAL Thin Prep with Reflex HPV Test PATIENT INFORMATION ACTUAL COLLECTION DATE: 04/06/06 LAST MENSTRUAL PERIOD: 03/22/06 ADEQUACY OF SPECIMEN Satisfactory for evaluation * Transformation zone component not identified * DIAGNOSIS NEGATIVE FOR INTRAEPITHELIAL LESION OR MALIGNANCY * The Pap Smear is a screening test designed to aid in the detection of premalign ant and malignant conditions of the uterine cervix. It is not a diagnostic procedure an d should not be used as the sole means of detecting cervical cancer. Both false-positive and false-negative reports do occur. Depending on your risk status, a Pap smear sandro uld be obtained and evaluated every one to three years. Signed Electronically signed Sohail DE LA ROSA(AS[facility]) 04/13/06 -- -- DEPARTMENT OF PATHOLOGY, [address] [place] [address] [facility] Permit #[id number] Kali Ma II, M.D. Director Ankur Torres M.D. General Road Supervisor D irector -- Procedures Date Code Description Status 07/28/2016 [id number] Colonoscopy Completed 03/15/2016 60293 EKG, at Least 12 Leads w/Interpretation and Report Completed 03/15/2016 63832 EKG, at Least 12 Leads w/Interpretation and Report Completed 11/17/2010 27755 EKG, at Least 12 Leads w/Interpretation and Report Completed Encounters Type Date Location Provider Dx Diagnosis Office Visit 09/08/2018 Main Office Mallory Biswas, E78.5 Hyperlipidemia , 9:30a LITERACY COACH-C unspecified E11.65 Type 2 diabetes mellitus with hyperglycemia Office Visit 08/02/2018 9:00a [facility] Mallory Dc Z00.00 Encntr for Storm, LITERACY COACH-C general adult medical exam w/o abnormal findings Z12.31 Encntr screen mammogram for malignant neoplasm of breast H60.313 Diffuse otitis externa, bilateral M79.672 Pain in left foot I10 Essential (primary) hypertension E66.9 Obesity, unspecified Office Visit 08/19/2017 9:00a Main Office Mallory Dc J06.9 Acute upper Storm, LITERACY COACH-C respiratory infection, unspecified Office Visit 06/10/2017 1:30p Main Office Mallory Dc Z00.00 Encntr for general Storm, LITERACY COACH-C adult medical exam w/o abnormal findings Z12.31 Encntr screen mammogram for malignant neoplasm of breast N85.2 Hypertrophy of uterus Office Visit 02/04/2017 3:45p Main Office Mallory Dc I10 Essential ( primary) Storm, LITERACY COACH-C hypertension Office Visit 01/03/2017 10:30a Main Office Christen Cooley, I10 Essential ( primary) LITERACY COACH-C hypertension Office Visit 03/15/2016 2:30p Main Office Shawnti R. Z00.00 Encntr for general Storm, LITERACY COACH-C adult medical exam w/o abnormal findings Z12.39 Encounter for oth screening for malignant neoplasm of breast I10 Essential (primary) hypertension E78.5 Hyperlipidemia, unspecified Office Visit 01/28/2015 1:30p Main Office Shawnti R. V70.0 Examination General Storm, LITERACY COACH-C Medical Routine AT Health Care Facility V76.10 Screening For Malignant Neoplasm Breast Office Visit 12/31/2013 8:45a Main Office Shawnti R. V70.0 Examination General Storm, LITERACY COACH-C Medical Routine AT Health Care Facility V72.62 Laboratory Exam Ordered as Part Of Routine General Med Exam 401.9 Hypertension Unspec 272.4 Hyperlipidemia Other Unspec Office Visit 05/18/2013 10:00a Main Office Shawnti R. 401.9 Hypertension Unspec Storm, LITERACY COACH-C Office Visit 11/21/2012 9:00a Main Office Shawnti R. V70.0 Examination General Storm, LITERACY COACH-C Medical Routine AT Health Care Facility 401.9 Hypertension Unspec 272.4 Hyperlipidemia Other Unspec 278.00 Obesity Unspec V72.62 Laboratory Exam Ordered as Part Of Routine General Med Exam V06.1 Ccnnhwpnkn-Gsrvpsw-Qszspjbq Combined (DTaP) Office Visit 05/19/2012 4:45p Main Office Shawnti R. 401.9 Hypertension Unspec Storm, LITERACY COACH-C 272.4 Hyperlipidemia Other Unspec Office Visit 11/26/2011 4:30p Main Office Shawnti R. 401.9 Hypertension Unspec Storm, LITERACY COACH-C Office Visit 11/12/2011 4:45p Main Office Shawnti R. 401.9 Hypertension Unspec Storm, LITERACY COACH-C Office Visit 10/12/2011 4:45p Main Office Shawnti R. 401.9 Hypertension Unspec Storm, LITERACY COACH-C Office Visit 09/14/2011 4:45p Main Office Shawnti R. 401.9 Hypertension Unspec Storm, LITERACY COACH-C Office Visit 08/24/2011 4:30p Main Office Shawnti R. 401.9 Hypertension Unspec Storm, LITERACY COACH-C Office Visit 08/03/2011 4:30p Main Office Mallory Dc 401.9 Hypertension Unspec True LITERACY COACH-C Office Visit 12/24/2010 8:45a Main Office Mallory Dc 401.9 Hypertension Unspec Storm, LITERACY COACH-C 626.9 Menstruation & Other Abnormal Bleeding Disorders Unspec Office Visit 11/17/2010 8:00a Main Office Mallory Dc V70.0 Examination General JAMES Biswas Medical Routine AT Health Care Facility 401.9 Hypertension Unspec 272.4 Hyperlipidemia Other Unspec 278.00 Obesity Unspec 626.9 Menstruation & Other Abnormal Bleeding Disorders Unspec Office Visit 04/03/2008 10:00a Main Office Tracy Ziegler, V72.31 Routine Tree Cutter M.DTaty, R.D. Examination 706.1 Acne Other 278.00 Obesity Unspec Office Visit 04/06/2006 9:00a Main Office Tamika Coombs, V72.31 Routine Tree Cutter [employer] Examination 466.0 Bronchitis Acute 278.00 Obesity Unspec V04.89 Need For Prophylactic Vaccination & Inoculation Other Virus V03.7 Tetanus Toxoid Vaccination & Inoculation V18.0 History Family Diabetes Mellitus Plan of Treatment Future Appointment(s):03/06/2019 8:00 am - [facility] at Main Vcqnav0303/13/2019 10:00 am - JAMES Cota at Main Ofeqct2012/04/2018 - Neftali Hay, MDR50.9 Fever, unspecifiedComments:Checking for lyme disease. Will treat with doxy if positive.
[2018-12-05 09:15] LABS: ABS Lymphocytes 0.4 10^3/ul (1.0-4.8); ABS Monocytes 0.4 10^3/ul (0-0.8); ABS Neutrophils 4.3 10^3/ul (1.5-7.7); Hematocrit 43 % (35-47); Hemoglobin 13.9 g/dL (12.0-16.0); Lymphocyte % 7.2 %; Mean Corpuscular HGB Conc 32 g/dL (31-36); Mean Corpuscular Hemoglobin 26 pg (27-31); Mean Corpuscular Volume 81 fL (80-97); Mean Platelet Volume 7.9 fL (7.4-10.4); Platelet Count 191 10^3/uL (150-450); Red Blood Count 5.32 10^6 /uL (3.70-4.87); Red Cell Distribution Width 15 % (10-15); White Blood Count 5.1 10^3/uL (3.5-10.8)
--- NOTE | 2018-12-05 09:25 | ED ---
Syncope/Near Syncope - HPI Summary HPI Summary: This patient is a 53 year old F presenting to [facility] accompanied with her daughter with a chief complaint of a syncopal episode that occurred 3 hours ago today. She states that three days ago, she had fever and chills. Patient went to PCP the next day and reports PCP was concerned about Lyme disease as patient had a tick behind her right knee last month. Patient states that this morning she took 4 ibuprofen tablets this morning with toast, had a syncopal episode, and woke up under the kitchen table. She denies injury from fall and denies any previous episodes of syncope. Patient reports fever, pain in joints and muscles , WAGONER, and nausea. The patient rates the pain 5/10 in severity. Symptoms aggravated by nothing. Symptoms alleviated by nothing. Patient denies any chills, erythema of eyes, rhinorrhea, sore throat, CP, SOB, cough, abdominal pain, vomiting, diarrhea, dysuria, hematuria, myalgia, edema, rash, stiff neck, or dizziness. Patient has hx of HTN and obesity, but no hx of heart disease, diabetes, thyroid disease. She notes she has not taken her blood pressure medication yet today, BP in room was 86/59. - History Of Current Complaint Chief Complaint: EDSyncope Time Seen by Provider: 12/05/18 08:45 Hx Obtained From: Patient Onset/Duration: Sudden Onset, Resolved Activity At Onset: At Rest Associated Head Trauma: No Aggravating Factor(s): Nothing Alleviating Factor(s): Nothing Associated Signs And Symptoms: Headache, Other - positive - nausea, pain in joints and muscles, fever - Allergies/Home Medications Allergies/Adverse Reactions: Allergies Allergy/AdvReac Type Severity Reaction Status Date / Time amlodipine Allergy Edema Verified 07/16/18 10:57 hydromorphone [From Dilaudid] Allergy Anxiety Verified 07/16/18 10:57 latex Allergy bumpy skin Verified 07/16/18 10:57 and itching lisinopril Allergy Coughing Verified 07/16/18 10:57 PMH/Surg Hx/FS Hx/Imm Hx Previously Healthy: No Endocrine/Hematology History: Denies: Hx Anticoagulant Therapy Cardiovascular History: Reports: Hx Hypertension - ON MEDICATION FOR Denies: Hx Cardiac Arrest, Hx Pacemaker/ICD GI History: Reports: Hx Gastroesophageal Reflux Disease - HX OF IN THE PAST History: Reports: Other Problems/Disorders - ovarian cyst left Musculoskeletal History: Reports: Hx Tendonitis - BILATERAL SHOULDERS Sensory History: Reports: Hx Contacts or Glasses - READING GLASSES Denies: Hx Hearing Aid Opthamlomology History: Reports: Hx Contacts or Glasses - READING GLASSES - Cancer History Hx Chemotherapy: No Hx Radiation Therapy: No - Surgical History Surgical History: Yes Surgery Procedure, Year, and Place: WISDOM TEETH EXTRACTED-AGE 15 Hx Anesthesia Reactions: No Infectious Disease History: No Infectious Disease History: Denies: Traveled Outside the [place] in Last 30 Days - Family History Known Family History: Positive: Other - hysterectomy - mother - Social History Alcohol Use: Weekly Hx Substance Use: No Substance Use Type: Reports: None Hx Tobacco Use: No Smoking Status (MU): Never Smoked Tobacco Do You Chew or Dip Tobacco: No Have You Chewed or Dipped Tobacco in the LAST YEAR: No Have You Smoked in the Last Year: No Review of Systems Positive: Fever. Negative: Chills Negative: Erythema Positive: Other. Negative: Sore Throat, Nasal Discharge Negative: Chest Pain Negative: Shortness Of Breath, Cough Positive: Nausea. Negative: Abdominal Pain, Vomiting Positive: other - negative - diarrhea. Negative: dysuria, hematuria Positive: Arthralgia, Myalgia, Other - positive - pain in joint and muscles, negative - stiff neck. Negative: Edema Negative: Rash Neurological: Other - negative - dizziness Positive: Headache All Other Systems Reviewed And Are Negative: Yes Physical Exam - Summary Physical Exam Summary: Constitutional: Well-developed, Well-nourished, Alert. (-) Distressed Skin: diaphoretic back, Warm HENT: Normocephalic; Atraumatic Eyes: Conjunctiva normal Neck: Musculoskeletal ROM normal neck. (-) JVD, (-) Stridor, (-) Tracheal deviation Cardio: Rhythm regular, rate normal, Heart sounds normal; Intact distal pulses; The pedal pulses are 2+ and symmetric. Radial pulses are 2+ and symmetric. (-) Murmur Pulmonary/Chest wall: Effort normal. (-) Respiratory distress, (-) Wheezes, (-) Rales Abd: Soft, (-) tenderness, (-) Distension, (-) Guarding, (-) Rebound Musculoskeletal: no joint diffusion, (-) Edema Lymph: (-) Cervical adenopathy Neuro: no meniginsus, Alert, Oriented x3 Psych: Mood and affect Normal Triage Information Reviewed: Yes Vital Signs On Initial Exam: Initial Vitals Temp Pulse Resp BP Pulse Ox 98.1 F 81 16 121/79 96 12/05/18 08:02 12/05/18 08:02 12/05/18 08:02 12/05/18 08:02 12/05/18 08:02 Vital Signs Reviewed: Yes Diagnostics - Vital Signs Vital Signs Temp Pulse Resp BP Pulse Ox 12/05/18 08:49 75 16 111/66 96 12/05/18 08:48 92 12/05/18 08:19 74 14 115/76 96 12/05/18 08:17 75 96 12/05/18 08:02 98.1 F 81 16 121/79 96 - Laboratory Lab Results: Lab Results 12/05/18 Range/Units 09:06 WBC 5.1 (3.5-10.8) 10^3/uL RBC 5.32 H (3.70-4.87) 10^6 /uL Hgb 13.9 (12.0-16.0) g/dL Hct 43 (35-47) % MCV 81 (80-97) fL MCH 26 L (27-31) pg MCHC 32 (31-36) g/dL RDW 15 (10-15) % Plt Count 191 (150-450) 10^3/uL MPV 7.9 (7.4-10.4) fL Neut % (Auto) 84.9 % Lymph % (Auto) 7.2 % [place] % (Auto) 7.6 % Eos % (Auto) 0.0 % Baso % (Auto) 0.3 % Absolute Neuts (auto) 4.3 (1.5-7.7) 10^3/ul Absolute Lymphs (auto) 0.4 L (1.0-4.8) 10^3/ul Absolute Monos (auto) 0.4 (0-0.8) 10^3/ul Absolute Eos (auto) 0.0 (0-0.6) 10^3/ul Absolute Basos (auto) 0.0 (0-0.2) 10^3/ul Absolute Nucleated RBC 0.0 10^3/ul Nucleated RBC % 0.0 Result Diagrams: 12/05/18 09:06 12/05/18 09:06 Lab Statement: Any lab studies that have been ordered have been reviewed, and results considered in the medical decision making process. - Radiology CXR Radiology Interpretation Completed By: Radiologist Summary of Radiographic Findings: IMPRESSION: NO ACTIVE CARDIOPULMONARY DISEASE. These findings were reviewed by Dr. Workman - Ultrasound ABD Ultrasound Interpretation Completed By: Radiologist Summary of Ultrasound Findings: IMPRESSION: FATTY INFILTRATION OF THE LIVER. These findings were reviewed by Dr. Workman - EKG 0832 Cardiac Rate: NL - 73 BPM EKG Rhythm: Sinus Rhythm Summary of EKG Findings: no STEMI, 73 BPM, sinus rhythm Re-Evaluation - Re-Evaluation First Eval Re-Evaluation Time: 10:48 Comment: Patient was updated on treatment plan. Patient is agreeable. Course/Dx Course Of Treatment: This patient is a 53 year old F presenting to [facility] [place] accompanied with her daughter with a chief complaint of a syncopal episode that occurred 3 hours ago today. She states that three days ago, she had fever and chills. Patient went to PCP the next day and reports PCP was concerned about Lyme disease as patient had a tick behind her right knee last month. Patient states that this morning she took 4 ibuprofen tablets this morning with toast, had a syncopal episode, and woke up under the kitchen table. She denies injury from fall and denies any previous episodes of syncope. Patient reports fever, pain in joints and muscles, WAGONER, and nausea. The patient rates the pain 5/10 in severity. Symptoms aggravated by nothing. Symptoms alleviated by nothing. Patient denies any chills, erythema of eyes, rhinorrhea, sore throat, CP, SOB, cough, abdominal pain, vomiting, diarrhea, dysuria, hematuria, myalgia, edema, rash, stiff neck, or dizziness. Patient has hx of HTN and obesity, but no hx of heart disease, diabetes, thyroid disease. She notes she has not taken her blood pressure medication yet today, BP in room was 86/59. Physical exam shows no meningismus, no joint diffusion, full ROM. and diaphoretic back. EKG at 0832 shows no STEMI, 73 BPM, sinus rhythm. CXR Impression: NO ACTIVE CARDIOPULMONARY DISEASE. ABD US IMPRESSION: FATTY INFILTRATION OF THE LIVER. At 1048, Dr. Workman updated the patient on treatment plan. Patient is agreeable. During the ED course, the patient was given Fluids, Vancomycin, and Zosyn. At 1034, Dr. Workman discusses patient's case with Dr. Guy. Dr. Guy agrees to admit patient. At 1048, patient was updated on treatment plan. Patient is agreeable. Final diagnoses are UTI, sepsis, and syncope. - Diagnoses Provider Diagnoses: UTI (urinary tract infection), Syncope, Sepsis - Physician Notifications Discussed Care of Patient With: Kelsi Guy Time Discussed With Above Provider: 10:34 Instructed by Provider To: Other - Dr. Workman discusses patient's case with Dr. Guy. Dr. Guy agrees to admit patient. - Critical Care Time Critical Care Time: 30-74 min - 45 min Discharge - Sign-Out/Discharge Documenting (check all that apply): Patient Departure - admit All imaging exams completed and their final reports reviewed: Yes Patient Received Moderate/Deep Sedation with Procedure: No - Discharge Plan Condition: Good Disposition: ADMITTED TO [facility] - Attestation Statements Document Initiated by Scribe: Yes Documenting Scribe: Arvin Martinez Provider For Whom Scribe is Documenting (Include Credential): Dr. Keon Workman MD Scribe Attestation: I, Arvin Remy and Noe Martinez, scribed for Dr. Keon Workman MD on 12/05/18 at 1621.
[2018-12-05 09:28] LABS: Activated Partial Thrombo Time 33.2 seconds (26.0-38.0); INR 1.2 (0.82-1.09)
[2018-12-05] MEDS: NS 0.9% IV ONE ×2 (09:31→10:27)
[2018-12-05 09:36] LABS: Albumin 4.4 g/dL (3.2-5.2); Albumin/Globulin Ratio 1.2 (1-3); BUN/Creatinine Ratio 14.6 (8-20); C Reactive Protein 80.22 mg/L (<8.01); Calcium 9.6 mg/dL (8.6-10.3); EGFR African American 68.1 (>60); EGFR Non-African American 56.3 (>60); Globulin 3.6 g/dL (2-4); Total Bilirubin 0.6 mg/dL (0.2-1.0)
[2018-12-05] MEDS ORDERED: ED Piperacillin/Tazobac 3.375 3.375 GM/100 ML PREMIX.SET IVPB ONE (10:27)
[2018-12-05] MEDS ORDERED: ED Vancomycin 1 GM/250 ML 1 GM/250 ML PREMIX.SET IVPB ONE (10:27)
[2018-12-05 10:56] LABS: Urine Appearance Cloudy; Urine Bacteria Absent (Absent); Urine Bilirubin Negative (Negative); Urine Blood Negative (Negative); Urine Color Amber; Urine Glucose Negative (Negative); Urine Ketones Negative (Negative); Urine Nitrite Negative (Negative); Urine Protein 2+(100 mg/dL) (Negative); Urine Red Blood Cell 2+(6-10/hpf) (Absent); Urine Specific Gravity 1.033 (1.010-1.030); Urine Squamous Epithelial Cell Present (Absent); Urine Urobilinogen Negative (Negative); Urine White Blood Cell 1+(6-10/hpf) (Absent)
[2018-12-05] MEDS ORDERED: Zosyn 3.375 GM IV - ED ONCE IVPB ONE ×2 (11:00)
[2018-12-05] MEDS ORDERED: Acetaminophen TAB* 325 MG PO PRN (14:52)
--- NOTE | 2018-12-05 14:53 | HP ---
ATTENDING ADDENDUM NOW INCLUDED ON THIS REPORT CC: Mallory Biswas NP * HISTORY AND PHYSICAL: DATE OF ADMISSION: 12/05/18 PRIMARY CARE PROVIDER: Mallory Biswas NP ATTENDING PHYSICIAN: Dr. Alonso Hagen * (dictated by CARMELLA Quan). CHIEF COMPLAINT: "I passed out." HISTORY OF PRESENT ILLNESS: Ms. Quispe is a 53-year-old female with a past medical history of hypertension and obesity who presented to the ER today due to a syncopal episode. She states that she was sitting at her table attempting to eat her breakfast which consisted of toast and take her ibuprofen for her fever and the next thing she knew she woke up under the kitchen table. She has no memory of the incident. She thinks that she slipped down and fell out of her chair. She states that her heard the table move, but heard nothing else. She denies loss of bowel or bladder function during the incident. She denies injury including head injury. She notes that when she awoke she was diaphoretic. The patient notes that she has been feeling ill for the past approximately 3 days. She has had a fever, headache, joint and muscle pain, fatigue, malaise, dizziness, and 1 episode of syncope. She has had decreased oral intake of both food and fluids. She admits to lethargy and body aches as well. She denies cough, abdominal pain, vomiting, diarrhea, or constipation. She does admit to occasional nausea. She denies chills, sweats, lightheadedness, or palpitations. She denies urinary symptoms including frequency, urgency, or retention. She does note that approximately one month ago she noticed a tick on the back of her knee. Her removed it. She is unsure of the length of attachment of the tick, but noted that it was very engorged. She does not recall having had a rash prior or after, but notes that she is unable to see that area well. The patient spends a lot of time outside gardening, mowing, etc. The patient states that she saw her primary care provider yesterday and was tested for Lyme. She is still awaiting results. In the ER, the patient received a full workup, which included a CBC which revealed no gross abnormalities, a chemistry panel which revealed mild elevation in creatinine, mildly elevated AST, ALT and an elevated C-reactive protein as well as a lactic acidosis. Chest x-ray was negative for active cardiopulmonary disease. EKG showed normal sinus rhythm with rate at 73. The patient is noted to have some bradycardia into the 40s and 50s that is asymptomatic. She also had some 1.8 to 2.3 second pauses noted; again, these are asymptomatic. The hospitalist team was asked to evaluate the patient for admission. PAST MEDICAL HISTORY: 1. Hypertension. 2. Obesity, BMI 40.6. PAST SURGICAL HISTORY: [place] teeth, right ovarian cyst. HOME MEDICATIONS: 1. Aspirin 81 mg p.o. at bedtime. 2. Losartan 50 mg p.o. q.a.m. 3. Multivitamin 1 cap p.o. q.a.m. 4. Triamterene/HCTZ 37.5/25 one cap p.o. q.a.m. DRUG ALLERGIES: AMLODIPINE, edema; HYDROMORPHONE, anxiety; LATEX, rash, itching ; LISINOPRIL, cough. FAMILY HISTORY: Maternal grandmother, CT; mother and father, CVA, diabetes mellitus; sister, diabetes mellitus; maternal grandfather, stomach cancer. SOCIAL HISTORY: The patient denies current and former use of tobacco. She drinks 3 to 4 alcoholic beverages per week. She uses no recreational drugs. 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 She lives with her and youngest daughter. In the event that she is unable to make her own medical decisions, she has appointed her , Trino Quispe, to be her surrogate decision maker. REVIEW OF SYSTEMS: A 10-point review of systems was performed and all the pertinent positives and negatives are in the HPI. All other systems are negative. PHYSICAL EXAMINATION GENERAL: Ms. Quispe is a well-developed, well-nourished, morbidly obese white female, who is sitting up in bed. She is in no acute distress. She is pleasant, cooperative, and appropriate. VITAL SIGNS: Temperature 98.1 temporal, heart rate 62, respiratory rate 20, oxygen saturation 96% on room air, blood pressure 136/73. HEENT: PERRL. EOMI. Nonicteric sclerae. Hearing is grossly intact. The oral mucous membranes are moist and without lesions. The pharynx is clear. RESPIRATORY: Symmetrical chest expansion without use of accessory muscles. Lungs clear to auscultation bilaterally without rhonchi, wheezes, or rubs. CARDIOVASCULAR: Regular rate and rhythm with S1, S2 present without murmurs, rubs, clicks, or gallops. There is no JVD. ABDOMEN: Bowel sounds noted in all quadrants. The abdomen is obese. There is no tenderness to palpation. There is no apparent hepatosplenomegaly. MUSCULOSKELETAL: Full range of motion without pain or deformities. EXTREMITIES: Skin is warm and smooth bilaterally without clubbing, cyanosis, or edema. Radial and pedal pulses are palpable. NEURO: The patient is awake, alert, oriented x3. Cranial nerves are grossly intact. She is able to move all of her extremities with a motor strength of 5/ 5 in bilateral upper and lower extremities. SKIN: Grossly intact. There is a small, approximately 0.5 cm round purplish area of scarring at the right posterior knee, which is where the patient states the tick was attached. Otherwise, no other lesions noted. DIAGNOSTIC STUDIES/LAB DATA: CBC within normal limits except for RBC 5.32, MCH 26. CMP: Chloride 98, creatinine 1.03, glucose 156, lactic acid 3.7. AST 46, ALT 60. CRP 80.22. ECG: Normal sinus rhythm with a rate of 73. Chest x-ray negative for active cardiopulmonary disease. ASSESSMENT AND PLAN: Ms. Quispe is a 53-year-old female with a past medical history of hypertension and obesity who presented to the ER today with complaints of syncope. She was noted to have a tick attached and removed approximately 1 month ago. The patient will be admitted to observation for: 1. Syncope. The patient had syncopal episode x1 this morning with other constitutional symptoms such as fever, malaise, fatigue, headache, lethargy, myalgias. The patient is noted to have had recent tick bite. She was tested for Lyme disease at her primary care provider and is awaiting results. The records have been requested. Due to this, she will be started on doxycycline 100 p.o. q.12 hours starting tonight. A tick-borne panel will be drawn. She will be continued on IV fluids at a rate of 100 per hour for maintenance. Her syncopal episode could also be cardiac in nature. An echocardiogram has been ordered. A repeat EKG has been ordered for the morning. 2. Lactic acidosis. The patient has a lactic acidosis of 3.7 without any qualifications meeting for systemic inflammatory response syndrome criteria or sepsis, as she is without fever, leukocytosis, tachypnea, tachycardia. She received 3.6 L fluid bolus. We will recheck lactic acid 3 hours later. 3. Acute kidney injury. The patient has a creatinine of 1.03. This may be due to hypovolemia. She has been fluid resuscitated. We will recheck creatinine in the morning. 4. Elevated LFTs. The patient has mild elevation in AST and ALT. Right upper quadrant ultrasound has been ordered. 5. Hypertension. The patient is on losartan and Dyazide. They have been placed on hold currently due to low to normal blood pressure. We will continue to monitor need for restarting. 6. FEN: The patient has been placed on heart-healthy diet. She will be on maintenance fluids of normal saline 100 per hour. 7. DVT prophylaxis: According to the DVT Risk Assessment, the patient scores 2 , placing her at moderate risk. She will be placed on heparin. 8. Code status: Full code. TIME SPENT: Approximately 60 minutes was spent on this admission, greater than half that time was spent with the patient obtaining history, performing physical , and reviewing the plan of care. The case has been reviewed with my attending, Dr. Hagen, who is in agreement with the plan of care. CARMELLA MOJICA ADDENDUM: The case was reviewed and discussed with CARMELLA Quan. In summary, Ms. Quispe is a 53-year-old lady with a past medical history of hypertension and morbid obesity who has not felt well for approximately 3 days. She developed fever, headache, malaise, muscle pain, and her oral intake has been poor. For example, today, the patient just had a toast before taking ibuprofen. She had a syncopal episode while at home. There is report of noticing a tick on the back of her knee a month ago and she had actually seen her PCP as an outpatient and had a Lyme test done, but was still awaiting results. At the time of this dictation, the patient has developed fever in the emergency room, although her other vital signs remain stable. She appears to have an infection, and at this point, etiology is unclear, but I suspect tick-borne disease. Her chest x-ray showed no active cardiopulmonary disease. Her urinalysis had negative LE and negative nitrites. Lyme disease may be the source and other tick-borne disease serologies were sent. She had mild elevation of her LFTs and an ultrasound revealed fatty infiltration of the liver. We will continue IV hydration. We will trend her lactic acid and she will have a transthoracic echocardiogram and will be monitored on telemetry. I am in agreement with the current management and I thoroughly discussed the case with the physician animal care assistant. ALONSO Hagen MD [id number]/[facility] #: [id number]/[facility] #: [id number] [place]AL[place]
[2018-12-05] MEDS ORDERED: hydrALAZINE IV* 20 MG/ML VIAL IV SLOW PU PRN (15:05)
[2018-12-05] MEDS ORDERED: Losartan TAB* 25 MG PO SCH ×2 (15:06→16:00)
[2018-12-05] MEDS ORDERED: cefTRIAXone(*) 1 GM in NS 0.9% 50 ML* 50 ML IVPB ONE (15:30)
[2018-12-05] MEDS: Heparin VIAL(*) 5000 UNITS/ML VIAL (FIVE THOUSAND) SUBCUT SCH ×2 (15:32→21:57)
--- NOTE | 2018-12-05 15:45 | HP ---
HISTORY AND PHYSICAL: ADDENDUM: The case was reviewed and discussed with CARMELLA Quan. In summary, Ms. Quispe is a 53-year-old lady with a past medical history of hypertension and morbid obesity who has not felt well for approximately 3 days. She developed fever, headache, malaise, muscle pain, and her oral intake has been poor. For example, today, the patient just had a toast before taking ibuprofen. She had a syncopal episode while at home. There is report of noticing a tick on the back of her knee a month ago and she had actually seen her PCP as an outpatient and had a Lyme test done, but was still awaiting results. At the time of this dictation, the patient has developed fever in the emergency room, although her other vital signs remain stable. She appears to have an infection, and at this point, etiology is unclear, but I suspect tick-borne disease. Her chest x-ray showed no active cardiopulmonary disease. Her urinalysis had negative LE and negative nitrites. Lyme disease may be the source and other tick-borne disease serologies were sent. She had mild elevation of her LFTs and an ultrasound revealed fatty infiltration of the liver. We will continue IV hydration. We will trend her lactic acid and she will have a transthoracic echocardiogram and will be monitored on telemetry. I am in agreement with the current management and I thoroughly discussed the case with the physician accounting assistant. [id number]/[facility] #: [id number] [place]AL[place]
--- NOTE | 2018-12-05 15:48 | ECHO ---
*[facility]* [place] [address] Fax #: [phone] Transthoracic Echocardiogram Patient: Etta Quispe : 1965 Study Date: 12/05/2018 Age: 53 Gender: F HR: 115 bpm Height: 67 in /170.2 cm BSA: 2.26 m^2 Weight: 258.5 lb /117.5 kg BMI: 40.6 kg/m^2 *General Lithographic Worker: * Christen Rowland [facility] *Referring Physician: * Comfort Mcarthur *Reading Physician: * Al Perez MD Indications: Syncope. History: Risk factors: Hypertension. Conclusions Summary: 1. Left ventricle: Systolic function is hyperdynamic. The estimated ejection fraction is 70-75%. Wall motion is normal; there are no regional wall motion abnormalities. 2. Mitral valve: There is no significant regurgitation. 3. Aortic valve: There is no evidence of stenosis. There is no significant regurgitation. 4. Tricuspid valve: There is no significant regurgitation. 5. Pericardium, extracardiac: There is no significant pericardial effusion. 6. Pulmonary arteries: Systolic pressure can not be accurately estimated. 7. Study data: No prior study is available for comparison. Study data: Transthoracic echocardiogram. Procedure: Transthoracic echocardiography was performed. Image quality was adequate. The study was technically limited due to excessive shivering and tachypnea. Complete 2D, spectral Doppler, and color flow Doppler. Location: Emergency department. Patient status: Inpatient. Patient room number: 9. No prior study is available for comparison. Rhythm: Tachycardia. Findings Left ventricle: The cavity size is normal. Wall thickness is mildly increased. Systolic function is hyperdynamic. The estimated ejection fraction is 70-75%. Wall motion is normal; there are no regional wall motion abnormalities. There is E to A reversal suggestive of diastolic dysfunction. Right ventricle: The cavity size is normal. Systolic function is hyperdynamic. Left atrium: The atrium is at the upper limits of normal in size. Right atrium: The atrium is normal in size. Mitral valve: The leaflets are mildly thickened. There is no evidence of stenosis. There is no significant regurgitation. Aortic valve: The leaflets are mildly thickened. There is no evidence of stenosis. There is no significant regurgitation. Tricuspid valve: Not well visualized. No evidence of leaflet thickening. There is no evidence of stenosis. There is no significant regurgitation. Pulmonic valve: Not well visualized. There is no significant regurgitation. Aorta: Aortic root: The aortic root is appears normal. Aortic arch: The aortic arch is appears normal. Pericardium: There is no significant pericardial effusion. Pulmonary arteries: Not well visualized. Systolic pressure can not be accurately estimated. Systemic veins: Inferior vena cava: Not well visualized. Measurements Left ventricle Value Ref Aortic valve continued Value Ref E', lat arcelia, TDI 11.7 cm/sec >=10.0 Peak grad, S 18.0 mm Hg ---- E/e', lat arcelia, TDI 10 GRETCHEN, VTI 2.70 cm^2 ---- E', med arcelia, TDI 11.7 cm/sec >=7.0 GRETCHEN, Vmax 3.00 cm^2 ---- E/e', med arcelia, TDI 10 E', avg, TDI 11.7 cm/sec Mitral valve Value Ref E/e', avg, TDI 10 <=14 Peak E 1.16 m/sec ---- Peak A 1.5 m/sec ---- LVOT Value Ref Decel time 87 ms ---- Diam, S 2.40 cm PHT 29 ms ---- Area 4.5 cm^2 Mean grad, D 5.0 mm Hg ---- Peak heather, S 1.39 m/sec Peak grad, D 10.0 mm Hg ---- Peak grad, S 8 mm Hg Peak E/A ratio 0.8 ---- Mean grad, S 4 mm Hg MVA, PHT 7.6 cm^2 ---- SV 89 ml SV/bsa 39 ml/m^2 Pulmonic valve Value Ref Peak v, S 1.36 m/sec ---- Left atrium Value Ref Peak grad, S 7.0 mm Hg ---- AP dim, ES (H) 4.20 cm 2.70 - 3.80 ML dim, A4C 5.1 cm Aortic root Value Ref SI dim, A4C 4.9 cm Root diam 2.9 cm <4.3 Vol/bsa, ES, A/L 34 ml/m^2 16 - 34 Ascending aorta Value Ref Right atrium Value Ref AAo AP diam, S 3.0 cm ---- Estimated RAP 8 mm Hg Aortic arch Value Ref Aortic valve Value Ref Arch diam 3.3 cm ---- Arcelia diam, ED 2.0 cm Peak v, S 2.1 m/sec Decending aorta Value Ref VTI, S 35.0 cm Jared peak heather 1.47 m/sec ---- Mean grad, S 11.0 mm Hg Legend: (L) and (H) samantha values outside specified reference range. Prepared and electronically signed by Al Perez MD 12/05/2018 15:48
[2018-12-05] MEDS ORDERED: Iodixanol* (CONTRAST) 320 MG/ML 100 ML SDV IV ONE ×2 (15:49→16:12)
[2018-12-05] MEDS ORDERED: NS 0.9% IV ONE (16:28)
--- NOTE | 2018-12-05 18:40 | PN ---
Hospitalist Progress Note Date of Service: 12/05/18 Late entry: In the ER, the patient was noted to develop sudden onset chills and shaking. She became hypertensive, tachycardic, and hypoxic, requiring O2 via mask. She became febrile. Patient was given acetaminophen, cold compress, ice chips. Shaking resolved and patient reports she is feeling better. Blood pressure has decreased and patient is no longer requiring O2. Patient remains tachycardic and febrile. -D-dimer was elevated. CTA of chest was inconclusive, due to poor opacification of vessels. V/Q scan has been ordered. -Lactic acid has elevated from 3.7 to 4.8, despite fluid bolus PLAN: -Admit to ICU, severe sepsis with continued lactic acidosis -Repeat fluid bolus and repeat lactic acid in 3 hours -Change antibiotics from doxycycline to broader coverage ceftriaxone
--- NOTE | 2018-12-05 18:52 | PN ---
Date of Service: 12/05/18 - HD 1 Critical Care Services: 53 yo F with PMH which includes HTN and GERD, presented to the ED on 12/05 with copmplaints of syncope 3 hrs prior to presentation, fevers and chills x 3 days, arthralgias, headache and nausea. She had sustained a tick bite in the past month and had seen her PCP in the past few days. On evaluation in ED, BP 86/59. On exam noted to be diaphoretic. Exam otherwise unremarkable. WBC 5.1. Creatinine 1.03. Lactic acid 3.7. CXR without acute pathology. US abdomen with fatty liver. Started on IVF, Vancomycin and Zosyn per sepsis protocol. Admitted to hospitalist service. Despite IVF, lactic acid increased to 4.8. Admitted to ICU for further resuscitation and care. Vital Signs: Temp Pulse Resp BP SpO2 FiO2 102.2 F 104 28 144/81 94 12/05/18 18:08 12/05/18 18:00 12/05/18 18:00 12/05/18 17:49 12/05/18 18:00 Physical Exam: Gen: Alert, conversant, resting comfortably in bed HEENT: intact. moist mucus membranes Lungs: nonlabored Cardiac: RRR Abdomen: soft, nondistended Extremities: warm, dry. right posterior knee with small <1cm scar where tick bite was. No erythema or induration. No TTP Neuro: alert and oriented. Fluid Balance (Past 24 Hours): I= O= Net Intake & Output 12/03/18 12/04/18 12/05/18 12/06/18 06:59 06:59 06:59 06:59 Intake Total 3100 Balance 3100 Weight 259 lb Intake: IV Fluids 3100 Labs: Laboratory Results - last 24 hr 12/05/18 12/05/18 12/05/18 09:06 09:06 09:06 WBC 5.1 RBC 5.32 H Hgb 13.9 Hct 43 MCV 81 MCH 26 L MCHC 32 RDW 15 Plt Count 191 MPV 7.9 Neut % (Auto) 84.9 Lymph % (Auto) 7.2 [place] % (Auto) 7.6 Eos % (Auto) 0.0 Baso % (Auto) 0.3 Absolute Neuts (auto) 4.3 Absolute Lymphs (auto) 0.4 L Absolute Monos (auto) 0.4 Absolute Eos (auto) 0.0 Absolute Basos (auto) 0.0 Absolute Nucleated RBC 0.0 Nucleated RBC % 0.0 INR (Anticoag Therapy) 1.20 H APTT 33.2 D-Dimer, Quantitative Sodium 136 Potassium 4.0 Chloride 98 L Carbon Dioxide 27 Anion Gap 11 BUN 15 Creatinine 1.03 H Est GFR ( Amer) 68.1 Est GFR (Non-Af Amer) 56.3 BUN/Creatinine Ratio 14.6 Glucose 156 H Lactic Acid Calcium 9.6 Total Bilirubin 0.60 AST 46 H ALT 60 H Alkaline Phosphatase 75 Troponin I 0.00 C-Reactive Protein 80.22 H Total Protein 8.0 Albumin 4.4 Globulin 3.6 Albumin/Globulin Ratio 1.2 Urine Color Urine Appearance Urine pH Ur Specific [place] Urine Protein Urine Ketones Urine Blood Urine Nitrate Urine Bilirubin Urine Urobilinogen Ur Leukocyte Esterase Urine WBC (Auto) Urine RBC (Auto) Ur Squamous Epith Cells Urine Bacteria Urine Glucose Urine Ascorbic Acid 12/05/18 12/05/18 12/05/18 09:06 10:26 15:20 WBC RBC Hgb Hct MCV MCH MCHC RDW Plt Count MPV Neut % (Auto) Lymph % (Auto) [place] % (Auto) Eos % (Auto) Baso % (Auto) Absolute Neuts (auto) Absolute Lymphs (auto) Absolute Monos (auto) Absolute Eos (auto) Absolute Basos (auto) Absolute Nucleated RBC Nucleated RBC % INR (Anticoag Therapy) APTT D-Dimer, Quantitative Sodium Potassium Chloride Carbon Dioxide Anion Gap BUN Creatinine Est GFR ( Amer) Est GFR (Non-Af Amer) BUN/Creatinine Ratio Glucose Lactic Acid 3.7 H* 4.8 H* Calcium Total Bilirubin AST ALT Alkaline Phosphatase Troponin I C-Reactive Protein Total Protein Albumin Globulin Albumin/Globulin Ratio Urine Color Rhiannon Urine Appearance Cloudy Urine pH 5.0 Ur Specific [place] 1.033 H Urine Protein 2+(100 mg/dl) A Urine Ketones Negative Urine Blood Negative Urine Nitrate Negative Urine Bilirubin Negative Urine Urobilinogen Negative Ur Leukocyte Esterase Negative Urine WBC (Auto) 1+(6-10/hpf) A Urine RBC (Auto) 2+(6-10/hpf) A Ur Squamous Epith Cells Present A Urine Bacteria Absent Urine Glucose Negative Urine Ascorbic Acid * A 12/05/18 15:20 WBC RBC Hgb Hct MCV MCH MCHC RDW Plt Count MPV Neut % (Auto) Lymph % (Auto) [place] % (Auto) Eos % (Auto) Baso % (Auto) Absolute Neuts (auto) Absolute Lymphs (auto) Absolute Monos (auto) Absolute Eos (auto) Absolute Basos (auto) Absolute Nucleated RBC Nucleated RBC % INR (Anticoag Therapy) APTT D-Dimer, Quantitative 986 H Sodium Potassium Chloride Carbon Dioxide Anion Gap BUN Creatinine Est GFR ( Amer) Est GFR (Non-Af Amer) BUN/Creatinine Ratio Glucose Lactic Acid Calcium Total Bilirubin AST ALT Alkaline Phosphatase Troponin I C-Reactive Protein Total Protein Albumin Globulin Albumin/Globulin Ratio Urine Color Urine Appearance Urine pH Ur Specific [place] Urine Protein Urine Ketones Urine Blood Urine Nitrate Urine Bilirubin Urine Urobilinogen Ur Leukocyte Esterase Urine WBC (Auto) Urine RBC (Auto) Ur Squamous Epith Cells Urine Bacteria Urine Glucose Urine Ascorbic Acid Studies: 12/05 CT head - ordered 12/05 TTE - ordered 12/05 CTA chest - limited study but no PE seen. No pericardial effusion. Hepatic steatosis present 12/05 US abdomen - fatty infiltration of liver 12/05 CXR - NAD Nutrition: heart healthy Impression: 53 yo F presents to ED on 12/05 with fever, chills, headache, and syncopal event. Bolused IVF, pancultured and started on broadspectrum abx. History of tick bite within the past month, tick panel sent. Admitted to ICU for persistent lactic acidosis despite IVF resuscitation. Plan: Cardiovascular: (1) Hypotension secondary to sepsis; (2) Chronic hypertension; (3) Labile heart rate -- HR 53-120 -- SBP 86-200 -- Telemetry -- TTE ordered -- EKG: NSR. -- troponin 0.00 -- ASA -- PRN Hydralazine for goal SBP < 160 Home meds: triamterene/HCTZ, ASA, losartan Pulmonary: No acute issues -- RR 6-39 -- sats 92-100 on RA -- CXR: NAD Home meds: None Gastrointestinal: (1) Hepatic steatosis;(2) Transaminitis; (3) hx of GERD -- CTA chest, 12/05: hepatic steatosis -- US abdomen, 12/05: fatty liver -- LFTs Tbili 0.6 ALK 75 AST 46, follow trend ALT 60, follow trend -- diet: heart healthy diet -- bowel regimen: none -- ulcer prophylaxis: not indicated at this time Home meds: None Endocrine: (1) Hyperglycemia -- monitor BGs -- start sliding scale insulin if BGs >180 Home meds: None Renal: (1) Elevated creatinine, likely prerenal azotemia -- UOP: strict ins and outs -- Cr 1.03 -- Lytes Na 136 K 4.0 Ca 9.6 Mag ordered with AM labs Phos ordered with AM labs -- IVF: NS @ 100 ml/hr Home meds: None Infectious disease: (1) Sepsis; (2) Concern for lyme disease -- Tmax 102.2 -- WBC 5.1 -- CRP 80.22 -- Micro 12/05 tick panel ordered blood in process UA negative -- ABX Rocephin Vancomycin Flagyl Home meds: None Neurologic: (1) Syncope -- PRN Tylenol -- CT brain ordered given syncopal episode and headaches in ED -- Carotid duplex ordered Home meds: None Hematological: No acute issues -- Hgb 13.9 -- Plt 191 -- Coags INR 1.20 PTT 33.2 DDimer 986, likely secondary to inflammatory response -- DVT prophylaxis: SQ Heparin -- ASA Home meds: ASA Metabolic: (1) Lactic acidosis -- Lactic acid 4.8 from 3.7, continue IVF resuscitaiton, follow trend Home meds: None Other: (1) hx of tendonitis -- MVI home meds: MVI Deep vein thrombosis prophylaxis: SQ Heparin Dietary: not indicated at this time Condition: critical Prognosis: guarded Code status: FULL Disposition: admitted to ICU Cumulative time spent in the care of this patient (excluding any procedure time) : at least 55 minutes. Patient care included clinical interview (with patient and/or family), bedside exam of the patient, review of labs, x-rays, and other ancillary data, coordination of (respiratory, nursing care, review of patient's records, discussion regarding patients management with involved consultants, primary physician, pharmacists, and other healthcare personnel (dietary, case management , physical/occupational therapy etc.) Critical Care Time: 55 min
[2018-12-05 19:53] LABS: Anion Gap 9 mmol/L (2-11); BUN/Creatinine Ratio 17.8 (8-20); Blood Urea Nitrogen 13 mg/dL (6-24); CO2 Carbon Dioxide 21 mmol/L (22-32); Calcium 7.9 mg/dL (8.6-10.3); Chloride 106 mmol/L (101-111); EGFR African American 101.3 (>60); EGFR Non-African American 83.7 (>60); Glucose 133 mg/dL (70-100); Magnesium 1.7 mg/dL (1.9-2.7); Potassium 2.9 mmol/L (3.5-5.0); Sodium 136 mmol/L (135-145)
[2018-12-05 19:56] LABS: Troponin I 0.06 ng/mL (<0.04)
[2018-12-05] MEDS ORDERED: Vancomycin per Pharmacy* NOTE FOLLOW UP SCH (20:00)
[2018-12-05] MEDS: metroNIDAZOLE IV 500 MG/100ML* 500 MG/100 ML BAG IVPB SCH (20:01)
[2018-12-05] MEDS ORDERED: Magnesium Sulfate 1 GM IV* 1 GM/100 ML BAG IV ONE (20:07)
[2018-12-05] MEDS ORDERED: Vancomycin(*) 2,000 MG in NS 0.9% 500 ML* 500 ML IVPB ONE (20:30)
[2018-12-05] MEDS: Aspirin EC TAB* 81 MG TAB.EC PO SCH (20:44)
[2018-12-05] MEDS: Potassium Chlor TAB* 20 MEQ TAB.ER PO SCH (20:44)
[2018-12-05] MEDS: NS 0.9% 1000 ML** 1,000 ML IV SCH (20:47)
[2018-12-05] MEDS ORDERED: DOXYcycline CAP(*) 100 MG PO SCH (21:00)
[2018-12-05] MEDS: KCL 20 MEQ/100 ML IVPREMIX* 20 MEQ/100 ML BAG IV SCH (21:57)
[2018-12-06] MEDS: KCL 20 MEQ/100 ML IVPREMIX* 20 MEQ/100 ML BAG IV SCH (00:10)
[2018-12-06] MEDS: Acetaminophen TAB* 325 MG PO PRN ×4 (01:25→18:54)
[2018-12-06] MEDS: Vancomycin(*) 1,000 MG in NS 0.9% 250 ML* 250 ML IVPB SCH ×4 (03:00→22:38)
[2018-12-06] MEDS: metroNIDAZOLE IV 500 MG/100ML* 500 MG/100 ML BAG IVPB SCH ×3 (04:19→20:33)
[2018-12-06 04:36] LABS: ABS Lymphocytes 0.3 10^3/ul (1.0-4.8); ABS Monocytes 0.3 10^3/ul (0-0.8); ABS Neutrophils 3.7 10^3/ul (1.5-7.7); Hematocrit 35 % (35-47); Hemoglobin 11.4 g/dL (12.0-16.0); Mean Corpuscular HGB Conc 33 g/dL (31-36); Mean Corpuscular Hemoglobin 26 pg (27-31); Mean Corpuscular Volume 80 fL (80-97); Mean Platelet Volume 8.2 fL (7.4-10.4); Nucleated Red Blood Cells % 0.1; Platelet Count 144 10^3/uL (150-450); Red Blood Count 4.37 10^6 /uL (3.70-4.87); Red Cell Distribution Width 15 % (10-15); White Blood Count 4.3 10^3/uL (3.5-10.8)
[2018-12-06 04:55] LABS: ALT 75 U/L (7-52); AST 61 U/L (13-39); Albumin 3.6 g/dL (3.2-5.2); Albumin/Globulin Ratio 1.3 (1-3); Alkaline Phosphatase 55 U/L (34-104); Anion Gap 7 mmol/L (2-11); BUN/Creatinine Ratio 12.7 (8-20); Blood Urea Nitrogen 7 mg/dL (6-24); CO2 Carbon Dioxide 22 mmol/L (22-32); Calcium 7.6 mg/dL (8.6-10.3); Chloride 107 mmol/L (101-111); EGFR African American 140.4 (>60); EGFR Non-African American 116.1 (>60); Globulin 2.8 g/dL (2-4); Glucose 115 mg/dL (70-100); Potassium 3.3 mmol/L (3.5-5.0); Sodium 136 mmol/L (135-145); Total Protein 6.4 g/dL (6.4-8.9)
[2018-12-06 05:05] LABS: Troponin I 0.04 ng/mL (<0.04)
[2018-12-06] MEDS: NS 0.9% 1000 ML** 1,000 ML IV SCH (06:14)
[2018-12-06] MEDS: hydrALAZINE IV* 20 MG/ML VIAL IV SLOW PU PRN ×2 (06:15→13:13)
[2018-12-06] MEDS: Heparin VIAL(*) 5000 UNITS/ML VIAL (FIVE THOUSAND) SUBCUT SCH ×3 (06:15→22:45)
[2018-12-06] MEDS ORDERED: Losartan TAB* 25 MG PO SCH (09:00)
[2018-12-06] MEDS ORDERED: Triamterene/HCTZ 37.5-25 MG* CAP PO SCH (09:00)
[2018-12-06] MEDS ORDERED: cefTRIAXone(*) 1 GM in NS 0.9% 50 ML* 50 ML IVPB SCH (09:00)
[2018-12-06] MEDS: Potassium Chlor TAB* 20 MEQ TAB.ER PO SCH ×3 (09:10→22:39)
[2018-12-06] MEDS: Vitamin THERAPEUTIC TAB PO SCH (09:10)
--- NOTE | 2018-12-06 10:00 | PN ---
Date of Service: 12/06/18 - HD 2 Critical Care Services: 53 yo F with PMH which includes HTN and GERD, presented to the ED on 12/05 with copmplaints of syncope 3 hrs prior to presentation, fevers and chills x 3 days, arthralgias, headache and nausea. She had sustained a tick bite in the past month and had seen her PCP in the past few days. On evaluation in ED, BP 86/59. On exam noted to be diaphoretic. Exam otherwise unremarkable. WBC 5.1. Creatinine 1.03. Lactic acid 3.7. CXR without acute pathology. US abdomen with fatty liver. Started on IVF, Vancomycin and Zosyn per sepsis protocol. Admitted to hospitalist service. Despite IVF, lactic acid increased to 4.8. Admitted to ICU for further resuscitation and care. 12/06: Lactic acid cleared overnight. Occasional sinus pause overnight. Vital Signs: Temp Pulse Resp BP SpO2 FiO2 99.2 F 86 20 139/81 97 12/06/18 07:54 12/06/18 08:00 12/06/18 08:15 12/06/18 08:00 12/06/18 08:15 Physical Exam: Gen: resting comfortably in bed HEENT: intact, mucus membranes moist Lungs: CTAB Cardiac: RRR Abdomen: soft, obese, nontender Extremities: warm, dry Neuro: alert and oriented Fluid Balance (Past 24 Hours): I= O= Net Intake & Output 12/04/18 12/05/18 12/06/18 12/07/18 06:59 06:59 06:59 06:59 Intake Total 8938 255 Output Total 3450 600 Balance 5488 -345 Weight 274 lb 0.553 oz Intake: IV Fluids 7891 55 Normal Saline 1000 IVPB 1047 Oral 0 200 Output: Urine 3450 600 Other: # Voids 0 Labs: Laboratory Results - last 24 hr 12/05/18 12/05/18 12/05/18 10:26 15:20 15:20 WBC RBC Hgb Hct MCV MCH MCHC RDW Plt Count MPV Neut % (Auto) Lymph % (Auto) [place] % (Auto) Eos % (Auto) Baso % (Auto) Absolute Neuts (auto) Absolute Lymphs (auto) Absolute Monos (auto) Absolute Eos (auto) Absolute Basos (auto) Absolute Nucleated RBC Nucleated RBC % D-Dimer, Quantitative 986 H Sodium Potassium Chloride Carbon Dioxide Anion Gap BUN Creatinine Est GFR ( Amer) Est GFR (Non-Af Amer) BUN/Creatinine Ratio Glucose Lactic Acid 4.8 H* Calcium Magnesium Total Bilirubin AST ALT Alkaline Phosphatase Troponin I Total Protein Albumin Globulin Albumin/Globulin Ratio Urine Color Rhiannon Urine Appearance Cloudy Urine pH 5.0 Ur Specific [place] 1.033 H Urine Protein 2+(100 mg/dl) A Urine Ketones Negative Urine Blood Negative Urine Nitrate Negative Urine Bilirubin Negative Urine Urobilinogen Negative Ur Leukocyte Esterase Negative Urine WBC (Auto) 1+(6-10/hpf) A Urine RBC (Auto) 2+(6-10/hpf) A Ur Squamous Epith Cells Present A Urine Bacteria Absent Urine Glucose Negative Urine Ascorbic Acid * A 12/05/18 12/05/18 12/06/18 19:28 19:28 04:23 WBC RBC Hgb Hct MCV MCH MCHC RDW Plt Count MPV Neut % (Auto) Lymph % (Auto) [place] % (Auto) Eos % (Auto) Baso % (Auto) Absolute Neuts (auto) Absolute Lymphs (auto) Absolute Monos (auto) Absolute Eos (auto) Absolute Basos (auto) Absolute Nucleated RBC Nucleated RBC % D-Dimer, Quantitative Sodium 136 136 Potassium 2.9 L 3.3 L Chloride 106 107 Carbon Dioxide 21 L 22 Anion Gap 9 7 BUN 13 7 Creatinine 0.73 0.55 Est GFR ( Amer) 101.3 140.4 Est GFR (Non-Af Amer) 83.7 116.1 BUN/Creatinine Ratio 17.8 12.7 Glucose 133 H 115 H Lactic Acid 0.8 Calcium 7.9 L 7.6 L Magnesium 1.7 L Total Bilirubin 0.50 AST 61 H ALT 75 H Alkaline Phosphatase 55 Troponin I 0.06 H* 0.04 H* Total Protein 6.4 Albumin 3.6 Globulin 2.8 Albumin/Globulin Ratio 1.3 Urine Color Urine Appearance Urine pH Ur Specific [place] Urine Protein Urine Ketones Urine Blood Urine Nitrate Urine Bilirubin Urine Urobilinogen Ur Leukocyte Esterase Urine WBC (Auto) Urine RBC (Auto) Ur Squamous Epith Cells Urine Bacteria Urine Glucose Urine Ascorbic Acid 12/06/18 04:23 WBC 4.3 RBC 4.37 Hgb 11.4 L Hct 35 MCV 80 MCH 26 L MCHC 33 RDW 15 Plt Count 144 L MPV 8.2 Neut % (Auto) 87.0 Lymph % (Auto) 7.0 [place] % (Auto) 5.9 Eos % (Auto) 0.0 Baso % (Auto) 0.1 Absolute Neuts (auto) 3.7 Absolute Lymphs (auto) 0.3 L Absolute Monos (auto) 0.3 Absolute Eos (auto) 0.0 Absolute Basos (auto) 0.0 Absolute Nucleated RBC 0.0 Nucleated RBC % 0.1 D-Dimer, Quantitative Sodium Potassium Chloride Carbon Dioxide Anion Gap BUN Creatinine Est GFR ( Amer) Est GFR (Non-Af Amer) BUN/Creatinine Ratio Glucose Lactic Acid Calcium Magnesium Total Bilirubin AST ALT Alkaline Phosphatase Troponin I Total Protein Albumin Globulin Albumin/Globulin Ratio Urine Color Urine Appearance Urine pH Ur Specific [place] Urine Protein Urine Ketones Urine Blood Urine Nitrate Urine Bilirubin Urine Urobilinogen Ur Leukocyte Esterase Urine WBC (Auto) Urine RBC (Auto) Ur Squamous Epith Cells Urine Bacteria Urine Glucose Urine Ascorbic Acid Studies: 12/06 US carotids - no hemodynamically significant stenosis of cartoids bilaterally 12/06 VQ scan - negative 12/05 CT head - NAD 12/05 TTE - LVEF 70-75%, hyperdynamic. normal wall motion. no pericardial effusion. 12/05 CTA chest - limited study but no PE seen. No pericardial effusion. Hepatic steatosis present 12/05 US abdomen - fatty infiltration of liver 12/05 CXR - NAD Nutrition: heart healthy diet Impression: 53 yo F presents to ED on 12/05 with fever, chills, headache, and syncopal event. Bolused IVF, pancultured and started on broadspectrum abx. History of tick bite within the past month, tick panel sent. Admitted to ICU for persistent lactic acidosis which subsequently has cleared. Plan: Cardiovascular: (1) Hypotension secondary to sepsis, resolved; (2) Elevated troponin, resolving; (3) Chronic hypertension; (3) Labile heart rate, resolved; (4) Several sinus pauses overnight, 3-4 sec each -- HR 53-121, <90 since midnight -- SBP 86-170 -- Telemetry -- TTE, 12/05: LVEF 70-75%, hyperdynamic, no WMA -- EKG: NSR. -- troponin 0.04 from 0.06 from 0.00, no chest pain -- ASA -- PRN Hydralazine for goal SBP < 160 -- consult cardiology for sinus pauses given episode of syncope. May benefit from holter monitor. Home meds: triamterene/HCTZ, ASA, losartan Pulmonary: (1) Newly diagnosed sleep apnea -- RR 6-35 -- sats 91-100 on RA -- CPAP at night Home meds: None Gastrointestinal: (1) Hepatic steatosis;(2) Transaminitis; (3) hx of GERD -- CTA chest, 12/05: hepatic steatosis -- US abdomen, 12/05: fatty liver -- LFTs Tbili 0.5 ALK 55 AST 61 from 46, follow trend ALT 75 from 60, follow trend -- diet: heart healthy diet -- bowel regimen: none -- ulcer prophylaxis: not indicated at this time Home meds: None Endocrine: (1) Hyperglycemia -- monitor BGs -- start sliding scale insulin if BGs >180 Home meds: None Renal: (1) Elevated creatinine, likely prerenal azotemia, resolved; (2) Hypokalemia; (3) Hypocalcemia; (4) Hypomagnesemia -- UOP: 144 ml/hr -- Cr 0.55 from 0.73 from 1.03 -- Lytes Na 136 from 136 K 3.3, replaced Ca 7.6, replaced Mag 1.7, replaced -- IVF: NS @ 100 ml/hr, decreeased to 50 -- Calcium carbonate Home meds: None Infectious disease: (1) Sepsis; (2) Concern for lyme disease -- Tmax 102.2, afebrile since midnight -- WBC 4.3 from 5.1 -- CRP 80.22 on 12/05 -- Micro 12/05 tick panel in process blood NGTD Urine negative MRSA screen negative -- ABX Rocephin Vancomycin Flagyl Home meds: None Neurologic: (1) Syncope -- PRN Tylenol -- CT brain negative for traumatic injury -- Carotid duplex negative for hemodynamically significant stenosis Home meds: None Hematological: (1) Dilutional anemia -- Hgb 11.4 from 3.9, dilutional -- Plt 144 from 191 -- DVT prophylaxis: SQ Heparin -- ASA Home meds: ASA Metabolic: (1) Lactic acidosis, resolved -- Lactic acid 0.8 from 4.8 Home meds: None Other: (1) hx of tendonitis -- MVI home meds: MVI Deep vein thrombosis prophylaxis: SQ Heparin Dietary: not indicated at this time Condition: serious Prognosis: good Code status: FULL Disposition: transfer to floor family updated at bedside regarding interval events and plant of care Cumulative time spent in the care of this patient (excluding any procedure time) : at least 30 minutes. Patient care included clinical interview (with patient and/or family), bedside exam of the patient, review of labs, x-rays, and other ancillary data, coordination of (respiratory, nursing care, review of patient's records, discussion regarding patients management with involved consultants, primary physician, pharmacists, and other healthcare personnel (dietary, case management , physical/occupational therapy etc.)
[2018-12-06] MEDS ORDERED: NS 0.9% 1000 ML** 1,000 ML IV SCH (10:57)
[2018-12-06] MEDS: Calcium Carbonate CHEW TAB* 500 MG (TUMS) PO SCH ×2 (13:12→22:39)
--- NOTE | 2018-12-06 14:16 | PN ---
Progress Note - Progress Note Date of Service: 12/06/18 - update Note: I spoke with Lab - the Lyme assay that was sent on 12/04 as an outpatient WILL reflex to western blot. Also, the Tick Panel sent on this admission DOES include Ehrlicia, Babesia, Anaplasma and Borrelia
[2018-12-06] MEDS ORDERED: Vancomycin Trough Check NOTE FOLLOW UP ONE (15:00)
[2018-12-06] MEDS: Ondansetron INJ* 2 MG/ML VIAL IV PRN (20:33)
[2018-12-06] MEDS: Aspirin EC TAB* 81 MG TAB.EC PO SCH (22:39)
--- NOTE | 2018-12-06 22:55 | CONS ---
CC: Hospitalist Service; Mallory Biswas NP * CONSULTATION REPORT: DATE OF CONSULT: 12/06/18 REASON FOR CONSULTATION: Syncope and bradycardia. HISTORY OF PRESENT ILLNESS: Etta Quispe is a 53-year-old woman with no past cardiac history. She presented to the hospital on 12/04/18 due to fainting. She was sitting at her kitchen and just found herself under the kitchen table. The patient had a couple of days before developed fevers, headaches, myalgias, fatigue for approximately 3 days. About a month ago, she had noted a tick bite behind her knee and she had not been treated for this. She had Lyme titer the day before at her primary care physician. The patient denies ever having fainted before. She denies palpitations, racing of the heart, chest pain, pressure, heaviness. On telemetry monitoring here with sleep, the patient was having sinus pauses of 3 to 4 seconds and then intensive care nurses had noted apnea-like behavior and the patient's daughter states her mother has snored loudly for many years. The strips also showed some mild or a brief, less than 6-second period of AV dissociation, probably isochronic competition. PAST MEDICAL HISTORY: The patient has a past medical history of: 1. Hypertension. 2. Obesity. MEDICATIONS: Outpatient medications included: 1. Triamterene/hydrochlorothiazide 37.5/25 one tab daily. 2. Losartan 50 mg a day. 3. Aspirin 81 mg a day. 4. MultiVites. ALLERGIES: Drug allergies and intolerance include AMLODIPINE, HYDROMORPHONE, LATEX, LISINOPRIL. FAMILY HISTORY: Significant in that her maternal grandmother had a heart attack. Parents both had stroke, history of diabetes. She has a sister with diabetes. SOCIAL HISTORY: The patient works at [email or web address], smokes cigarettes, 3 to 4 alcoholic beverages a week. REVIEW OF SYSTEMS: See history of present illness for recent fevers, chills, tick bite, and just feeling poorly for the last 3 days. The patient admits to intermittent constipation. She denies any recent hematuria, dysuria, ear or dental pain. No recent cough. No productive sputum. She does think she is dehydrated, but was able to eat. All other 10- point review of systems was negative. PHYSICAL EXAM: The patient is 5 feet 7 inches, weighs 274 pounds with a BMI of 42. Vital signs at the time I saw her, blood pressure 143/84, pulse was 69, respiratory rate 26, oxygen saturation on room air 95, temperature 100.7, T-max since admission was 101.4 on 12/05/18. General Appearance: Overweight, middle- aged woman lying in bed, appears fatigued but awoke readily, and appears a bit weak requiring help to sit up in bed. Skin: Warm, dry. [place] complexion without appreciable rashes or cyanosis. HEENT: Pupils are equal and round. Mucous membranes moist. Neck: Thick from obesity, but no appreciable increase in JVP. No thyromegaly. Good carotid pulses. No audible bruits. Breath sounds after coughing are clear with no wheezes, rales, or rhonchi. Coronary: S1 , S2, regular without murmurs or rubs. Abdomen: Overweight, active bowel sounds and soft. Lower extremities are warm and free of edema. DIAGNOSTIC STUDIES/LAB DATA: White count 4.3, hematocrit 35, platelets 144. Differential unremarkable. INR 1.2, PTT 33, D-dimer elevated at 986. Sodium 136, potassium 3.3, chloride 107, bicarb 22, BUN 7, creatinine 0.55, glucose 115 , calcium low at 7.6. Transaminases on admission AST 46, ALT 60. Today, AST 61 , ALT 75. Troponin #1 - 0.00; #2 - 0.06; #3, 0.04. C-reactive protein elevated at 80.2. Urinalysis from 12/05/18, specific gravity 1.033, 2+ protein, 1+ white count, glucose negative, 2+ red cells. Serology from 12/04/18 was documented as equivocal (full report not able to be pulled up). Studies: Chest x-ray from 12/05/18, showed no active pulmonary disease. CT scan, 12/05/18, was suboptimal to evaluate for pulmonary emboli that showed hepatosteatosis. V/Q scan from 12/06/18, no ventilation profusion defects, negative V/Q scan. Echocardiogram from 12/05/18 showed hyperdynamic ventricle with an ejection fraction of 70% to 75%, normal valve function, normal pericardium. CT of the brain, no intracranial abnormalities. Abdominal ultrasound, fatty infiltration of the liver. 12-lead ECGs on admission, 12/05/18 at 8:30 showed normal sinus rhythm 73 beats a minute, QRS axis -40, normal AV and IV conduction times, normal STs. From 02/15 at 2357, normal sinus rhythm 71 beats a minute, no missed beats, not changed from admission; and 12/06/18 at 8:11 in the morning shows normal sinus rhythm 81 beats a minute, unchanged from admission. Rhythm strips as per history of present illness show normal sinus rhythm with intermittent sinus pauses from 3 to 4 seconds (with sleep and observed apnea) and normal sinus rhythm with competing junctional or supraventricular rhythm for 3 or 4 beats, AV dissociation transient. IMPRESSION AND PLAN: In summary, Etta Quispe is a 53-year-old woman, who had a tick bite a month ago, 3 days of infectious symptoms of fever, myalgias, fatigue, who presented after a syncopal episode while sitting in the kitchen. On the monitor, the patient has had evidence of abnormal sinus node dysfunction with sinus pauses as well as some AV dyssynchrony but without bradycardia. Regarding the patient's syncope, evidence of sinus node dysfunction, and AV dyssynchrony, the patient is certainly at risk for Lyme myocarditis. The timing is good for this and although the most typical presentation is AV july disease, it can present as sick sinus syndrome after reviewing the literature. The patient is also at risk for bradycardia due to probable sleep apnea. I would not expect to lead to syncope while sitting at the table. The patient is also at risk for vagally mediated syncope based on evidence that she was dehydrated with her concentrated urine and she is at risk for that with her fevers and infectious presentation. I do not recommend pacemaker implantation acutely. I think we should continue to monitor her. She is being treated with ceftriaxone, and if her Lyme is in fact confirmed, she may have reversal of conduction disease. It would be appropriate on discharge to have her use an event monitor for 2 to 4 weeks as well in case she has recurrent events. I do feel the patient has obstructive sleep apnea based on the nurses' observations, her daughter's observations, and history combined with the patient 's body habitus, and she should get an outpatient evaluation for this as we are unable to do this on an inpatient basis. I would keep her electrolytes optimized keeping her potassium 4 to 4.5 ensuring magnesium is stable, and I would follow up on her low calcium. I would replete magnesium to keep above 2. For the mild bump in troponin, this could be related to Lyme myocarditis, but she does have atherosclerotic risk of dyslipidemia (July 2018, LDL cholesterol 150, triglycerides 225, HDL cholesterol 50). Hypertension, she is centripetally obese. I would not recommend stressing her now as I do not feel she is up to an exercise stress test, and a chemical stress test is contraindicated now with her bradycardia. I would not recommend starting her on a statin now, but fatty liver does not contraindicate this in the future. For her fatty liver, obesity, sleep apnea, and general health, she would benefit from diet and lifestyle improvements once the acute illness is over. We will follow with you and make additional recommendations based on her clinical course. [id number]/[facility] #: [id number] CHALINO
[2018-12-07] MEDS: Acetaminophen TAB* 325 MG PO PRN ×3 (00:12→17:50)
[2018-12-07 00:54] LABS: Anaplasma phagocytophilum Negative (Negative); B. miyamotoi PCR, B Negative (Negative); Babesia divergens/MO-1 Negative (Negative); Babesia ducani Negative (Negative); Ehrlichia chaffeensis Negative (Negative); Ehrlichia ewingii/canis Negative (Negative); Ehrlichia muris eauclairensis Negative (Negative)
[2018-12-07] MEDS: Vancomycin(*) 1,000 MG in NS 0.9% 250 ML* 250 ML IVPB SCH ×4 (02:54→22:23)
[2018-12-07] MEDS: metroNIDAZOLE IV 500 MG/100ML* 500 MG/100 ML BAG IVPB SCH ×3 (05:33→20:40)
[2018-12-07] MEDS: Heparin VIAL(*) 5000 UNITS/ML VIAL (FIVE THOUSAND) SUBCUT SCH ×3 (05:38→21:11)
[2018-12-07 05:57] LABS: Hematocrit 36 % (35-47); Hemoglobin 11.8 g/dL (12.0-16.0); Mean Corpuscular HGB Conc 33 g/dL (31-36); Mean Corpuscular Hemoglobin 27 pg (27-31); Mean Corpuscular Volume 80 fL (80-97); Mean Platelet Volume 8.5 fL (7.4-10.4); Platelet Count 151 10^3/uL (150-450); Red Blood Count 4.44 10^6 /uL (3.70-4.87); Red Cell Distribution Width 15 % (10-15); White Blood Count 5.2 10^3/uL (3.5-10.8)
[2018-12-07 06:13] LABS: BUN/Creatinine Ratio 11.1 (8-20); Calcium 8.5 mg/dL (8.6-10.3); EGFR African American 120.1 (>60); EGFR Non-African American 99.2 (>60); Magnesium 2.1 mg/dL (1.9-2.7); Potassium 3.3 mmol/L (3.5-5.0)
[2018-12-07] MEDS: Calcium Carbonate CHEW TAB* 500 MG (TUMS) PO SCH ×2 (08:00→21:11)
[2018-12-07] MEDS: Vitamin THERAPEUTIC TAB PO SCH (08:00)
[2018-12-07] MEDS: Potassium Chlor TAB* 20 MEQ TAB.ER PO SCH ×5 (08:00→17:49)
[2018-12-07] MEDS: Ondansetron INJ* 2 MG/ML VIAL IV PRN ×2 (08:02→17:51)
[2018-12-07] MEDS ORDERED: cefTRIAXone(*) 2 GM in NS 0.9% 100 ML* 100 ML IVPB SCH (09:00)
[2018-12-07 13:44] LABS: Erythrocyte Sed Rate 34 mm/Hr (0-29)
[2018-12-07 15:21] LABS: TSH (Thyroid Stimulating Horm) 1.64 mcIU/mL (0.34-5.60)
[2018-12-07] MEDS: hydrALAZINE IV* 20 MG/ML VIAL IV SLOW PU PRN (15:50)
--- NOTE | 2018-12-07 17:23 | PN ---
Subjective Date of Service: 12/07/18 Interval History: Tmax 102 this AM. Lyme equivocal. nausea improved with zofran. WAGONER when she has the fevers, never neck stiffness. no dysuria, abdominal pain, diarrhea, cough, rash(did not look after the tick bite. Objective Active Medications: Acetaminophen (Tylenol Tab*) 650 mg PO Q6H PRN PRN Reason: Fever/Pain 1-5 Last Admin: 12/07/18 08:00 Dose: 650 mg Aspirin (Aspirin Ec Tab*) 81 mg PO BEDTIME [facility] Last Admin: 12/06/18 22:39 Dose: 81 mg Calcium Carbonate (Tums*) 500 mg PO BID [facility] Last Admin: 12/07/18 08:00 Dose: 500 mg Heparin Sodium (Porcine) (Heparin Vial(*)) 5,000 units SUBCUT Q8HR [facility] Last Admin: 12/07/18 15:03 Dose: 5,000 units Hydralazine HCl (Apresoline Iv*) 10 mg IV SLOW PU Q6H PRN PRN Reason: Systolic Bp Greater Than: 160 Last Admin: 12/07/18 15:50 Dose: 10 mg Metronidazole/Sodium Chloride (Flagyl 500 Mg Ivpb*) 500 mg in 100 mls @ 100 mls /hr IVPB Q8H [facility] Last Admin: 12/07/18 13:08 Dose: 100 mls/hr Vancomycin HCl 1,000 mg/ (Sodium Chloride) 250 mls @ 166.667 mls/hr IVPB Q6H [facility] Last Admin: 12/07/18 15:03 Dose: 166.667 mls/hr Ceftriaxone Sodium 2 gm/ (Sodium Chloride) 100 mls @ 200 mls/hr IVPB Q24H [facility] Last Admin: 12/07/18 10:02 Dose: 200 mls/hr Multivitamins (Theragran Tab*) 1 tab PO QAM [facility] Last Admin: 12/07/18 08:00 Dose: 1 tab Ondansetron HCl (Zofran Inj*) 4 mg IV Q6H PRN PRN Reason: NAUSEA Last Admin: 12/07/18 08:02 Dose: 4 mg Pharmacy Consult (Vancomycin Per Pharmacy*) 1 note FOLLOW UP .VANC PER PHARMACY REJI; Protocol Pharmacy Profile Note (Vancomycin Trough Check) 1 note FOLLOW UP ONCE ONE Stop: 12/08/18 08:31 Vital Signs - 8 hr 12/07/18 15:15 Temperature 99 F Pulse Rate 68 Respiratory 20 Rate Blood Pressure 170/94 (mmHg) O2 Sat by Pulse 97 Oximetry Oxygen Devices in Use Now: None Appearance: NAD Eyes: No Scleral Icterus Ears/Nose/Mouth/Throat: NL Teeth, Lips, Gums Neck: NL Appearance and Movements; NL JVP Respiratory: Symmetrical Chest Expansion and Respiratory Effort, Clear to Auscultation Cardiovascular: NL Sounds; No Murmurs; No JVD, RRR Abdominal: NL Sounds; No Tenderness; No Distention Extremities: No Edema Skin: No Rash or Ulcers Neurological: Alert and Oriented x 3 Nutrition: Taking PO's Result Diagrams: 12/07/18 05:11 12/07/18 05:11 Additional Lab and Data: Laboratory Results - last 24 hr 12/05/18 12/06/18 12/07/18 15:20 15:03 05:11 WBC 5.2 RBC 4.44 Hgb 11.8 L Hct 36 MCV 80 MCH 27 MCHC 33 RDW 15 Plt Count 151 MPV 8.5 ESR 34 H Sodium Potassium Chloride Carbon Dioxide Anion Gap BUN Creatinine Est GFR ( Amer) Est GFR (Non-Af Amer) BUN/Creatinine Ratio Glucose Calcium Magnesium C-Reactive Protein TSH Anaplasma DNA (PCR) Negative B. divergens/MO-1 PCR Negative Babesia duncani DNA PCR Negative Babesia microti DNA PCR Negative B. burgdorferi IgM (IB) Positive A Lyme IgG Bands Present None Lyme IgG Ab (Immblot) Negative Lyme IgM Ab (Immblot) p41,p23 Lyme Disease Interpret See comment Borrelia miyamotoi (PCR) Negative E.chaffeensis DNA (PCR) Negative E. ewingii/canis (PCR) Negative E. muris-like DNA (PCR) Negative 12/07/18 05:11 WBC RBC Hgb Hct MCV MCH MCHC RDW Plt Count MPV ESR Sodium 137 Potassium 3.3 L Chloride 103 Carbon Dioxide 26 Anion Gap 8 BUN 7 Creatinine 0.63 Est GFR ( Amer) 120.1 Est GFR (Non-Af Amer) 99.2 BUN/Creatinine Ratio 11.1 Glucose 107 H Calcium 8.5 L Magnesium 2.1 C-Reactive Protein 135.00 H TSH 1.64 Anaplasma DNA (PCR) B. divergens/MO-1 PCR Babesia duncani DNA PCR Babesia microti DNA PCR B. burgdorferi IgM (IB) Lyme IgG Bands Present Lyme IgG Ab (Immblot) Lyme IgM Ab (Immblot) Lyme Disease Interpret Borrelia miyamotoi (PCR) E.chaffeensis DNA (PCR) E. ewingii/canis (PCR) E. muris-like DNA (PCR) Microbiology and Other Data: Microbiology 12/05/18 15:20 No Source Provided Aerobic Blood Culture - Preliminary No Growth Day 2 12/05/18 15:20 No Source Provided Anaerobic Blood Culture - Preliminary No Growth Day 2 12/05/18 09:15 Blood Venous Aerobic Blood Culture - Preliminary No Growth Day 2 12/05/18 09:15 Blood Venous Anaerobic Blood Culture - Preliminary No Growth Day 2 12/05/18 09:06 Blood Venous Aerobic Blood Culture - Preliminary No Growth Day 2 12/05/18 09:06 Blood Venous Anaerobic Blood Culture - Preliminary No Growth Day 2 12/05/18 10:26 Urine Urine Culture - Final 12/05/18 19:24 Nasal Nasal Screen MRSA (PCR) - Final Mrsa Not Detected Assess/Plan/Problems-Billing Assessment: 53 yo female PMH HTN, obesity, AARON(CPAP), GERD p/w 4 days of fever. Had tick bite month prior. FUO. Lyme equivocal. - Patient Problems (1) FUO (fever of unknown origin) Current Visit: Yes Status: Acute Comment: ECHO no vegetation CTA chest no consolidation BCx NGTD UCx NG continue vancomycin, ceftriaxone. CRP rising add EBV, CMV. ESR stop flagy. lyme equivocal, start doxycycline. denies joint pains. consider MARKO, bone marrow biopsy, ZOLTAN, CT abdomen if not improving. However highest suspicion for viral vs lyme at this point. (2) Tick bite Current Visit: Yes Status: Acute Code(s): W57.XXXA - BIT/STUNG BY NONVENOM INSECT & OTH NONVENOM ARTHROPODS, INIT SNOMED Code(s): 75718100 Comment: starting empiric doxy tick panel negative. (3) HTN (hypertension) Current Visit: Yes Status: Acute Code(s): I10 - ESSENTIAL (PRIMARY) HYPERTENSION SNOMED Code(s): 86166981 Comment: sBP 150-170 had been hypotensive in ED wiht MAXWELL so losartan held, triamterene-HCTZ held. (4) Full code status Current Visit: Yes Status: Acute Code(s): Z78.9 - OTHER SPECIFIED HEALTH STATUS SNOMED Code(s): 161566814 (5) DVT prophylaxis Current Visit: Yes Status: Acute Code(s): Z29.9 - ENCOUNTER FOR PROPHYLACTIC MEASURES, UNSPECIFIED SNOMED Code(s): 644505696 Comment: heparin 5000 TID. Status and Disposition: medicine inpatient.
[2018-12-07] MEDS: Aspirin EC TAB* 81 MG TAB.EC PO SCH (21:11)
[2018-12-07] MEDS ORDERED: oxyCODONE TAB* 5 MG TAB PO PRN (21:36)
[2018-12-07] MEDS ORDERED: Ibuprofen TAB* 600 MG PO PRN (21:36)
[2018-12-07] MEDS ORDERED: Acetaminophen TAB* 325 MG PO PRN (21:38)
[2018-12-07] MEDS ORDERED: Ondansetron INJ* 2 MG/ML VIAL IV PRN (22:12)
[2018-12-08] MEDS ORDERED: Metoclopramide IV* 5 MG/ML 2 ML VIAL IV SLOW PU PRN (00:01)
[2018-12-08] MEDS ORDERED: Al Hydrox/Mg Hydrox/Simet LIQ* 30 ML UDC PO PRN (00:02)
[2018-12-08] MEDS: Vancomycin(*) 1,000 MG in NS 0.9% 250 ML* 250 ML IVPB SCH (04:15)
[2018-12-08] MEDS: Heparin VIAL(*) 5000 UNITS/ML VIAL (FIVE THOUSAND) SUBCUT SCH (05:18)
[2018-12-08 06:27] LABS: Hematocrit 32 % (35-47); Hemoglobin 10.8 g/dL (12.0-16.0); Mean Corpuscular HGB Conc 34 g/dL (31-36); Mean Corpuscular Hemoglobin 27 pg (27-31); Mean Corpuscular Volume 79 fL (80-97); Mean Platelet Volume 8.6 fL (7.4-10.4); Platelet Count 159 10^3/uL (150-450); Red Blood Count 3.97 10^6 /uL (3.70-4.87); Red Cell Distribution Width 15 % (10-15); White Blood Count 4.2 10^3/uL (3.5-10.8)
[2018-12-08 06:44] LABS: BUN/Creatinine Ratio 27.3 (8-20); Calcium 8.5 mg/dL (8.6-10.3); EGFR African American 181.7 (>60); EGFR Non-African American 150.2 (>60); Magnesium 2.1 mg/dL (1.9-2.7); Potassium 3.3 mmol/L (3.5-5.0)
[2018-12-08] MEDS ORDERED: Vancomycin Trough Check NOTE FOLLOW UP ONE (08:30)
[2018-12-08] MEDS ORDERED: DOXYcycline CAP(*) 100 MG PO SCH (09:00)
[2018-12-08 09:05] VITALS: BP 157/92
[2018-12-08] MEDS: Vitamin THERAPEUTIC TAB PO SCH (09:35)
[2018-12-08] MEDS: Calcium Carbonate CHEW TAB* 500 MG (TUMS) PO SCH (09:37)
[2018-12-08] MEDS ORDERED: Potassium Chlor TAB* 20 MEQ TAB.ER PO ONE (12:35)
[2018-12-08 14:44] LABS: EBV Capsid Ag IgG Ab Positive (Negative); EBV Capsid Ag IgM Ab Positive (Negative); Epstein-Barr Nuclear Antigen Positive (Negative)
[2018-12-08 16:45] LABS: Cytomegalovirus IgG Antibody Negative (Negative)
--- NOTE | 2018-12-09 09:45 | DS ---
DISCHARGE SUMMARY: DATE OF ADMISSION: 12/05/18 DATE OF DISCHARGE: 12/08/18 ADMITTING PROVIDER: CARMELLA Quan PRIMARY CARE PROVIDER: Mallory Biswas NP ATTENDING PHYSICIAN ON DAY OF DISCHARGE: Shahram Casanova MD PULLMAN CLERK DURING ADMISSION: Holly Sosa MD CHIEF COMPLAINT: Syncope, fevers. PRINCIPAL DIAGNOSES: Sepsis secondary to early Lyme disease; syncope; acute kidney injury. HISTORY OF PRESENT ILLNESS AND HOSPITAL COURSE: Etta Quispe is a 53-year- old female with past medical history of hypertension, obesity. Please see H and P for full details, but briefly, she syncopized at breakfast. She had been feeling ill for 3 days prior with fevers, headaches, joint and muscle pains, fatigue, dizziness. She had occasional nausea. One month ago, she had noticed a engorged tick in the back of her right knee that was removed by her . They were not sure how long it was there. She was not checking to see if there was any rash that developed before or after that event. She presented to the primary care provider a day prior to admission, had labs for Lyme disease. Initial workup included a lactic acidosis of 3.7, CRP of 80, AST of 46, ALT 60, no leukocytosis, and a creatinine of 1.03. She was referred to the hospitalist service for admission. She had a transthoracic echocardiogram which showed hyperdynamic systolic function with an EF of 70% to 75%, no regional wall motion abnormalities. There was suggestion of diastolic dysfunction given E-to- A reversal. D-dimer was checked, it was 96, and she had a CTA of the chest which showed limited study and opacification of the pulmonary arteries limiting evaluation for pulmonary embolus. There was no pericardial effusion noted. Troponins initially was 0, but peaked at 0.06 and 0.04. She got hypotensive in emergency room, 86/59, and then hypertensive as high as 200/122. She had a CTA of the brain, noncontrast, which demonstrated no traumatic intracranial abnormalities. Her lactic acidosis actually increased to 4.8 despite IV fluids and she was admitted to the intensive care service for further resuscitation. She was started on broad-spectrum antibiotics including Rocephin, vancomycin, and Flagyl. She had an abdominal ultrasound which showed fatty infiltration of the liver. She did have V/Q scan which showed no ventilation perfusion defects. She was noted to have some sinus pauses on telemetry up to 3 to 4 seconds as well as apnea-like behavior (she does have a history of snoring for many years). There was also a less than 6 second period of AV dissociation. She was evaluated by Dr. 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 She was not recommended to have a pacemaker acutely. She should follow up with outpatient cardiology evaluation. Her Lyme test drawn as an outpatient eventually returned equivocal, the one drawn as inpatient showed 2 bands of IgM in a bipositive and no bands of IgG consistent with possible early Lyme disease. She had another fever day prior to discharge of 102 and her ceftriaxone dose was increased to 2 g q.24 from the initial 1 g q.24 given possible myocardial involvement. After the aforementioned Lyme results, her vancomycin, Flagyl, ceftriaxone were stopped and doxycycline oral was added. TSH was checked, it was 1.64. She is being discharged on a 21-day course of Lyme specific antibiotics (20 more days of the doxy). DISCHARGE MEDICATIONS: Include: 1. Aspirin 81 mg daily. 2. Doxycycline 100 mg p.o. b.i.d. (new). 3. Losartan 50 mg daily. 4. Multivitamin 1 tab daily. 5. Triamterene/hydrochlorothiazide 37.5/25 mg daily. FOLLOWUP: The patient should follow up with Mallory Biswas NP, within 7 to [address] Dian Madrid within 2 to 3 weeks. There is consideration for a sleep study given her apnea-like breathing and occasional bradycardia and BMI of 40 to 42, recommend rule out obstructive sleep apnea. DISPOSITION: Home. CONDITION: Improved. DIET: Heart healthy. TIME SPENT: On discharge 40 minutes. [id number]/[facility] #: [id number] [place]
== END 2018-12-08 16:45 | disposition home or self-care (01) | DRG 720 ==
LOC: ED 07:56 → MEDTELE 12:57 → ICU 17:42 → OBSVTOIN 12-06 13:06 → MEDTELE 12-06 14:25
PROVIDERS: ADMIT Internal Medicine; ATTEND Internal Medicine
PROC: 5A09357 Assistance with Respiratory Ventilation, Less than 24 Consecutive Hours, Continuous Positive Airway Pressure (ICD-10-PCS; principal; 2018-12-08)
DX: A41.89 Other specified sepsis (principal); A69.20 Lyme disease, unspecified; N17.9 Acute kidney failure, unspecified; A69.29 Other conditions associated with Lyme disease; E87.2 Acidosis; Z68.41 Body mass index [BMI] 40.0-44.9, adult; R55 Syncope and collapse; I10 Essential (primary) hypertension; K76.0 Fatty (change of) liver, not elsewhere classified; I49.5 Sick sinus syndrome; E66.01 Morbid (severe) obesity due to excess calories; R94.5 Abnormal results of liver function studies; K21.9 Gastro-esophageal reflux disease without esophagitis; R11.0 Nausea; R79.89 Other specified abnormal findings of blood chemistry; G47.30 Sleep apnea, unspecified; R73.9 Hyperglycemia, unspecified; E87.6 Hypokalemia; E83.51 Hypocalcemia; E83.42 Hypomagnesemia; D64.9 Anemia, unspecified; R65.20 Severe sepsis without septic shock; Z79.82 Long term (current) use of aspirin; Z88.8 Allergy status to other drugs, medicaments and biological substances; Z88.5 Allergy status to narcotic agent; Z91.040 Latex allergy status; Z82.49 Family history of ischemic heart disease and other diseases of the circulatory system; Z83.3 Family history of diabetes mellitus; Z80.0 Family history of malignant neoplasm of digestive organs; Z72.89 Other problems related to lifestyle
CPT/HCPCS: 36415; 70450; 71045; 71275; 76705; 78582; 80048; 80053; 80202; 81003; 81015; 83605; 83735; 84443; 84484; 85025; 85027; 85379; 85610; 85652; 85730; 86140; 86617; 86644; 86645; 86664; 86665; 87040; 87086; 87641; 87798; 93005; 93306; 93880; 94660; 99285; A9270-GY; A9540; A9558; J0360; J0696; J1644; J2405; J2543; J3370; J3475; J3480; J3490; Q9967